=== PATIENT | male | born 1960 | race Caucasian/White ===

== ENCOUNTER → 2023-12-27 12:55 | Outpatient (CLI) | payer OTHER, SELFPAY ==
--- NOTE | 2023-12-27 12:58 | DI.CT.S_ITS ---
PROCEDURE: CT CHEST WO CON INDICATIONS: CHRONIC COUGH TECHNIQUE: Noncontrast 5 mm thick sections acquired from the pulmonary apices to the posterior costophrenic angles. 1 mm lung window, 5 mm thick coronal and sagittal and 7 mm axial MIP reformats were then acquired. For radiation dose reduction, the following was used: automated exposure control, adjustment of mA and/or kV according to patient size. COMPARISON: None. FINDINGS: Image quality: Diagnostic. Lower Neck: No enlarged lymph nodes. Thyroid: No thyroid nodules which require sonographic follow up, per consensus guidelines. Axillae: No enlarged lymph nodes. Chest Wall: Unremarkable. Bones: Unremarkable. Lungs and Pleura: Multiple lung nodules are present. Reference nodules: -1.2 x 1.7 cm; right upper lobe; series 3, image 81. -0.9 x 1.2 cm; right upper lobe; series 3, image 111. -1.1 x 1.3 cm; left upper lobe; series 3, image 111. -0.7 cm; right upper lobe; series 3 image 129. -0.7 cm; left upper lobe; series 3 image 138. There is moderate emphysema. No pneumothorax or pleural effusions. No consolidation. Heart: Heart size is normal. No pericardial effusion. Mild coronary artery calcification. Thoracic Vessels: The aorta and pulmonary arteries demonstrate normal size. Mediastinum and Marley: No enlarged lymph nodes. There is a 0.9 x 1.2 cm borderline sized precarinal lymph node, likely reactive. Esophagus: No wall thickening. Small hiatal hernia. Upper Abdomen: Visualized upper abdomen solid organs and bowel loops appear normal. IMPRESSION: 1. Multiple lung nodules bilaterally, predominantly involving upper lobes. Many nodules are partially calcified and probably related to remote granulomatous infections. Comparison to prior examinations, if available, would be helpful. If no prior examinations are available, recommend a short interval follow-up CT in 3 months. 2. Moderate emphysema. Dictated by: Caryn Felton M.D. on 12/27/2023 at 16:50 Approved by: Caryn Felton M.D. on 12/28/2023 at 9:05
== END ==
PROVIDERS: Referring Provider Family Medicine; Visit Provider Family Medicine
DX: J43.9 Emphysema, unspecified (principal); R05.3 Chronic cough; R91.8 Other nonspecific abnormal finding of lung field; I25.10 Atherosclerotic heart disease of native coronary artery without angina pectoris; K44.9 Diaphragmatic hernia without obstruction or gangrene
CPT/HCPCS: 71250

== ENCOUNTER → 2024-06-29 14:18 | Outpatient (CLI) | payer OTHER, SELFPAY ==
--- NOTE | 2024-06-29 14:19 | DI.CT.S_ITS ---
PROCEDURE: CT CHEST WO CON INDICATIONS: FOLLOW UP LUNG NODULES TECHNIQUE: Noncontrast 5 mm thick sections acquired from the pulmonary apices to the posterior costophrenic angles. 1 mm lung window, 5 mm thick coronal and sagittal and 7 mm axial MIP reformats were then acquired. For radiation dose reduction, the following was used: automated exposure control, adjustment of mA and/or kV according to patient size. COMPARISON: [facility], CT, CT CHEST WO CON, 12/27/2023, 13:09. FINDINGS: Image quality: Diagnostic Lungs and pleura: Numerous pulmonary nodules again seen. Background moderate emphysema. Most of the nodules are calcified, suggestive of granulomatous nodules. No dense airspace disease or pleural effusions. There is a cavitary nodule that is significantly increased from prior imaging in the left upper lung measuring 1.2 cm. There are spiculated margins. The other nodules are stable. Mediastinum, heart, and esophagus: Atherosclerotic and coronary calcifications. No pathologic lymph nodes by size criteria. Esophagus is unremarkable. Chest wall and thyroid: Unremarkable Upper abdomen: No gross abnormality on these noncontrast images. Subcentimeter right lobe liver lesions too small to characterize, usually a cyst Bones: There are degenerative changes. IMPRESSION: Significantly increased size of the spiculated cavitary nodule in the left upper lung measuring up to 1.2 cm (image 3/72). Consider PET-CT to assess metabolic activity, although possibly amenable to percutaneous sampling, background emphysema increases risk of procedural pneumothorax. Numerous other pulmonary nodules are stable, most of them are calcified suggestive of granulomas. Other findings above Dictated by: Henrique Goddard M.D. on 06/30/2024 at 7:32 Approved by: Henrique Goddard M.D. on 06/30/2024 at 7:39
== END ==
LOC: CT 14:18
PROVIDERS: PCP Registered Nurse; Referring Provider Registered Nurse; Visit Provider Registered Nurse
DX: Z12.2 Encounter for screening for malignant neoplasm of respiratory organs (principal); I25.10 Atherosclerotic heart disease of native coronary artery without angina pectoris; R91.8 Other nonspecific abnormal finding of lung field
CPT/HCPCS: 71250

== ENCOUNTER 2025-01-31 20:04 | Inpatient (IN) | payer OTHER, SELFPAY ==
[2025-01-31] VITALS (13 sets, daily range): BP systolic 105–125; BP diastolic 62–79; PULSE 94–121; TEMP 36.8; O2SAT 91–98; BMI 19.9
--- NOTE | 2025-01-31 20:12 | DI.RAD.S_ITS ---
PROCEDURE: XR CHEST 1V INDICATIONS: Shortness of breath TECHNIQUE: One view of the chest was acquired. COMPARISON: [facility], CT, CT CHEST WO CON, 06/29/2024, 14:32. FINDINGS: Surgical changes and devices: None. Lungs and pleura: Lungs are hyperexpanded. Diffuse appearance of interstitial opacities with areas of nodularity identified on prior CT. Bilateral minimal to mild effusions, left greater than right with increased pulmonary vascularity. Mediastinum: Mediastinal contours appear normal. Heart size is enlarged. Bones and chest wall: No suspicious bony lesions. Overlying soft tissues appear unremarkable. IMPRESSION: Minimal to mild bilateral effusions and increased vascularity suggestive of edema. Focal nodular opacities are again identified as on prior CT. Dictated by: Bette Fairchild M.D. on 01/31/2025 at 20:35 Approved by: Bette Fairchild M.D. on 01/31/2025 at 20:37
--- NOTE | 2025-01-31 20:14 | EKG_ITS ---
[address] [address] Test Date: 2025-01-31 Pat Name: Teodoro Horner Department: Room: Gender: Male Senior Oracle Dba: VIKTORIA : 1960 Requested By: Order Number: [id number] Reading MD: Kenton Fong Measurements Intervals [place] Rate: 102 P: 78 KS: 158 QRS: 20 QRSD: 160 T: 45 QT: 392 QTc: 510 Interpretive Statements Sinus tachycardia Possible Left atrial enlargement Left bundle branch block Electronically Signed On 02-15-2025 8:09:06 PDT by Kenton Fong
[2025-01-31] MEDS: ALBUTEROL/IPRATROPIUM 3 ML AMPUL INH (20:16)
--- NOTE | 2025-01-31 20:30 | ED_ITS ---
HPI - SOB/Dyspnea General Chief Complaint: Shortness of Breath/Dyspnea Stated Complaint: difficulty breathing hx copd Time Seen by Provider: 01/31/25 20:13 Source: patient Mode of arrival: EMS Limitations: no limitations History of Present Illness HPI Narrative: 64-year-old male with history of ongoing smoking since age 16, many pack years, no home oxygen use, history of COPD, [facility], denies history of known CAD, denies history of known CHF, has chronic lower extremity edema, increased cough and increasing shortness of breath over the last few days, worsened today. Arrived by EMS, given breathing treatment during transport. Little improvement symptoms on arrival. Related Data Home Medications ?Medication ?Instructions ?Recorded ?Confirmed albuterol 90 mcg/actuation aerosol mcg inhalation .Q4h rs PRN 02/01/25 inhaler shortness of breath amlodipine 10 mg tablet 10 mg PO DAILY 02/01/2501/09 fluticasone 250 mcg-salmeterol 50 1 inh inhalation BID Shortness 02/01/25 02/01/25 mcg/dose blistr powdr for inhalation (Advair Diskus) fluticasone propionate 50 1 spray intranasal DAILY PRN nasal 02/01/25 02/01/25 mcg/actuation nasal congestion spray,suspension (Flonase Allergy Relief) modafinal DAILY Narcolepsy 02/01/25 naproxen 500 mg tablet 250 mg PO BID PRN pain 02/0102/01/25 Allergies Allergy/AdvReac Type Severity Reaction Status Date / Time No Known Drug Allergies Allergy Verified 01/31/25 20:11 Patient History Social History household members: none Smoking Status: Current every day smoker Smoking Status: Current every day smoker Exam Narrative Exam Narrative: GENERAL: Well-developed patient, in mild distress. HEAD: Atraumatic. Normocephalic. EYES: Pupils equal round and reactive. Extraocular motions intact. No scleral icterus. No injection or drainage. ENT: Nose without bleeding, purulent drainage. Throat without erythema, tonsillar hypertrophy or exudate. Airway patent. NECK: Trachea midline. Non tender CARDIOVASCULAR: Regular rate and rhythm without murmurs, gallops, or rubs. RESPIRATORY: Slight wheeze and expiration, breathing treatment and progress during my initial exam, no obvious crackles. GASTROINTESTINAL: Abdomen soft, non-tender, nondistended. EXTREMITIES: Bilateral lower extremity edema 2+ ankles and distal forelegs symmetrical, without tenderness. BACK: Nontender without deformity or crepitance. No flank tenderness. NEURO: AOx3. Motor functions grossly nonfocal. SKIN: No rash or erythema of visible areas Initial Vital Signs Initial Vital Signs: Vital Signs Temperature 98.3 F 01/31/25 20:03 Pulse Rate 109 H 01/31/25 20:03 Blood Pressure 115/68 01/31/25 20:03 Pulse Oximetry 93 01/31/25 20:03 Oxygen Delivery Method Nasal Cannula 01/31/25 20:03 Oxygen Flow Rate 4 01/31/25 20:03 Course Orders Ordered: Acetaminophen (Acetaminophen 325 Mg Tablet) 650 mg PO Q6H PRN PRN Reason: Fever/Mild Pain (1-3) Albuterol/Ipratropium (Albuterol/Ipratropium 3 Ml Ampul) 3 ml INH [id number] [facility] Last Admin: 02/01/25 19:14 Dose: 3 ml Documented By: Admin: 02/01/25 15:03 Dose: 3 ml Documented By: Admin: 02/01/25 09:41 Dose: 3 ml Documented By: ED Albuterol/Ipratropium (Albuterol/Ipratropium 3 Ml Ampul) 3 ml INH RTQ6HR PRN PRN Reason: Shortness Of Breath Azithromycin (Azithromycin 250 Mg Tablet) 250 mg PO DAILY [facility] Last Admin: 02/01/25 08:41 Dose: 250 mg Documented By: JIMMY Budesonide (Budesonide 0.5 Mg/2 Ml Neb) 0.5 mg INH RTBID [facility] Last Admin: 02/01/25 19:14 Dose: 0.5 mg Documented By: Admin: 02/01/25 09:41 Dose: 0.5 mg Documented By: ED Enoxaparin Sodium (Enoxaparin 40 Mg/0.4 Ml Syringe) 40 mg SUBCUT DAILY [facility] Last Admin: 02/01/25 08:43 Dose: 40 mg Documented By: JIMMY Furosemide (Furosemide 40 Mg/4 Ml Vial) 40 mg IV Q8H [facility] Last Admin: 02/02/25 00:16 Dose: 40 mg Documented By: Admin: 02/01/25 15:12 Dose: Not Given Documented By: Admin: 02/01/25 06:02 Dose: Not Given Documented By: RUSTY Guaifenesin (Guaifenesin Solution 100 Mg/5 Ml Udc) 200 mg PO Q4HR PRN PRN Reason: Cough Last Admin: 02/01/25 22:17 Dose: 200 mg Documented By: CARINA Ceftriaxone Sodium 1,000 mg/ (Sodium Chloride) 100 mls @ 200 mls/hr IV Q24H [facility] Last Infusion: 02/01/25 09:37 Dose: Infused Documented By: Admin: 02/01/25 08:42 Dose: 200 mls/hr Documented By: JIMMY Methylprednisolone (Methylprednisolone 125 Mg/2 Ml Vial) 60 mg IV Q8H [facility] Last Admin: 02/02/25 00:29 Dose: 60 mg Documented By: Admin: 02/01/25 16:20 Dose: 60 mg Documented By: Admin: 02/01/25 08:42 Dose: 60 mg Documented By: JIMMY Morphine Sulfate (Morphine 2 Mg/Ml Inj) 1 mg IV Q2HR PRN PRN Reason: dyspnea Naloxone HCl (Naloxone 0.4 Mg/Ml Vial) 0.2 mg IV Q2MIN PRN PRN Reason: Opiate Reversal Ondansetron HCl (Ondansetron 4 Mg/2 Ml Inj) 4 mg IV Q8HR PRN PRN Reason: Nausea And Vomiting Discontinued Medications Albuterol (Albuterol 2.5 Mg/3 Ml Neb (Adult)) 7.5 mg INH NOW ONE Stop: 01/31/25 22:57 Last Admin: 01/31/25 23:00 Dose: 7.5 mg Documented By: MR Albuterol/Ipratropium (Albuterol/Ipratropium 3 Ml Ampul) 3 ml INH NOW ONE Stop: 01/31/25 20:14 Last Admin: 01/31/25 20:16 Dose: 3 ml Documented By: MR Aspirin (Aspirin 81 Mg Chew Tab) 324 mg PO NOW ONE Stop: 01/31/25 22:08 Last Admin: 01/31/25 22:19 Dose: 324 mg Documented By: ZAK Furosemide (Furosemide 40 Mg/4 Ml Vial) 40 mg IV NOW ONE Stop: 01/31/25 22:08 Last Admin: 01/31/25 22:18 Dose: 40 mg Documented By: ZAK Magnesium Sulfate (Magnesium Sulfate) 2 gm in 50 mls @ 150 mls/hr IV NOW ONE Stop: 01/31/25 20:32 Last Infusion: 01/31/25 20:58 Dose: Infused Documented By: ZAK Co-signed By: CHANDLER Admin: 01/31/25 20:31 Dose: 150 mls/hr Documented By: ZAK Co-signed By: ARIAN Lorazepam (Lorazepam 2 Mg/Ml Inj) 0.5 mg IV NOW ONE Stop: 02/02/25 00:43 Methylprednisolone (Methylprednisolone 125 Mg/2 Ml Vial) 125 mg IV NOW ONE Stop: 01/31/25 20:14 Last Admin: 01/31/25 20:31 Dose: 125 mg Documented By: ZAK Nitroglycerin (Nitroglycerin Oint 1 Inch/Gm Oint...G.) 1 inch TOP NOW ONE Stop: 01/31/25 22:08 Last Admin: 01/31/25 22:19 Dose: 1 inch Documented By: ZAK Non-Formulary Medication (Fluticasone Propion-Salmeterol [Advair Diskus]) 1 inhalation INHALATION BID RASHMI Vital Signs Vital signs: Vital Signs - 8 hr 01/31/25 23:00 01/31/25 23:00 01/31/25 23:29 Pulse Rate 107 H 115 H Blood Pressure 118/79 Pulse Oximetry 97 96 01/31/25 23:30 01/31/25 23:31 02/01/25 00:00 Pulse Rate 121 H Blood Pressure 125/70 93/52 L Pulse Oximetry 93 02/01/25 00:00 Pulse Rate 100 H Blood Pressure Pulse Oximetry 96 MDM - SOB/Dyspnea Lab Data Attestation: I reviewed the patient's lab results. Lab results narrative: White blood cell count 3800, hemoglobin 10.9, platelets adequate. Glucose 169. BUN 13 with creatinine 0.73 normal renal function. Serum CO2 26. Sodium 131 with potassium 4.0. Liver functions normal. Lipase normal. Troponin 0.01 initially low but measurable, troponin repeat 0.025 measurable slightly increased but still quite low. BNP 6370 elevated. 02/01/25 04:57 02/01/25 04:57 Labs: Lab Results 01/31/25 01/31/25 Range/Units 20:40 23:30 WBC 7.7 (4.5-11.0) X10^3/uL RBC 3.35 L (4.5-5.9) X10^6/uL Hgb 11.7 L (13.5-17.5) g/dL Hct 33.4 L (41-53) % MCV 99.7 (80-100) fL MCH 35.0 H (26-34) PG MCHC 35.1 (30-36) % RDW 14.3 (11.6-14.8) % Plt Count 215 (150-400) X10^3/uL Neut % (Auto) 67.1 (50-75) % Lymph % (Auto) 19.7 L (25-40) % [place] % (Auto) 7.5 (3-14) % Eos % (Auto) 4.2 H (2-4) % Baso % (Auto) 1.5 (0-2) % Neut # (Auto) 5200 (4033-7895) /uL Lymph # (Auto) 1500 (0829-6480) /uL [place] # (Auto) 600 (0-900) /uL Eos # (Auto) 300 (0-450) /uL Baso # (Auto) 100 (0-100) /uL PT 12.9 H (9.4-12.5) SECONDS INR 1.1 (0.9-1.3) Sodium 130 L (137-145) mmol/L Potassium 4.3 (3.4-5.1) mmol/L Chloride 98 (98-107) mmol/L Carbon Dioxide 25 (22-32) mmol/L BUN 11 (9-20) mg/dL Creatinine 0.65 L (0.66-1.25) mg/dL Estimated GFR > 60 (>60) mL/min BUN/Creatinine Ratio 16.9 (6-22) Glucose 107 H (70-99) mg/dL Lactate 1.0 (0.7-2.1) mmol/L Calcium 8.7 (8.4-10.2) mg/dL Total Bilirubin 0.6 (0.2-1.3) mg/dL AST 32 (17-59) IU/L ALT 22 (<50) IU/L Alkaline Phosphatase 80 (38-126) U/L Troponin I 0.014 0.025 (0.01-0.034) ng/mL NT-Pro-B Natriuret Pep 6370 H (<125) pg/mL Total Protein 7.2 (6.3-8.2) g/dL Albumin 3.9 (3.5-5.0) g/dL Globulin 3.3 (1.7-4.1) g/dL Albumin/Globulin Ratio 1.2 (1.0-2.8) Imaging Data Chest x-ray: Radiologist's Impression: [address] [address] XRay Report Signed Patient: Teodoro Horner MR#: [id number] : 1960 Acct:[id number] Age/Sex: 64 / M Date of Service: 02/02/25 Loc: 215-1 Accession Number: [id number] Procedure: XR chest 1V Ordering Provider: Pravin Huff MD PROCEDURE: XR CHEST 1V INDICATIONS: shortness of breath TECHNIQUE: One view of the chest was acquired. COMPARISON: [facility], CT, CT CHEST WO CON, 06/29/2024, 14:32. [facility], CR, XR CHEST 1V, 01/31/2025, 20:08. FINDINGS: Surgical changes and devices: None. Lungs and pleura: Multiple pulmonary nodules are again noted. Bronchial thickening, smooth interstitial thickening and small pleural effusions. Bibasilar atelectasis. Mediastinum: Mediastinal contours appear normal. Heart size is enlarged. Bones and chest wall: No suspicious bony lesions. Overlying soft tissues appear unremarkable. IMPRESSION: Moderate pulmonary edema and small pleural effusions. Scattered pulmonary nodules. Some of these require further workup as noted on CT dated 06/29/2024, if not already obtained. Dictated by: Milton Rhoades M.D. on 02/02/2025 at 0:17 Approved by: Milton Rhoades M.D. on 02/02/2025 at 0:19 ECG Data Attestation: I personally reviewed and interpreted this ECG as follows: Interpretation: 2013, sinus tachycardia with rate of 102, left bundle branch block pattern present. None for comparison identified. NE 158, QRS 160, QTC 510. MDM Narrative Medical decision making narrative: 64-year-old male with history of COPD, longstanding smoking, still a current smoker, chronic lower extremity edema, no recalled diagnosis of congestive heart failure, with shortness of breath, arrival by EMS, no response to initial breathing treatment. Slight wheeze end expiratory, IV Solu-Medrol, additional bronchodilators given. Hypoxia, new supplemental oxygen nasal cannula requirement for now. EKG left bundle, sinus tachycardia. Troponin negative. Chest x-ray scattered lung nodules, fluid overload changes, no mentioned infiltrates. See radiology report. Lab data: White blood cell count 3800, hemoglobin 10.9, platelets adequate. Glucose 169. BUN 13 with creatinine 0.73 normal renal function. Serum CO2 26. Sodium 131 with potassium 4.0. Liver functions normal. Lipase normal. Troponin 0.01 initially low but measurable, troponin repeat 0.025 measurable slightly increased but still quite low. BNP 6370 elevated. Hypoxia, likely CHF, history of COPD, consider admission. We will contact hospitalist. Case discussed with hospitalist Dr. Huff who accepts patient for admission. Critical Care Time Critical Care Time Critical Care Time: Yes Total Critical Care Time: 35 Attestation: The high probability of a clinically significant, sudden or life threatening deterioration of the [cardiopulmonary] system(s) required my full and direct attention, intervention and personal management. The aggregate critical care time was [35] minutes. This time is in addition to time spent performing reported procedures but includes the following: [x] Data Review and interpretation [x] Patient assessment and monitoring of vital signs [x] Documentation [x Medication orders and management Discharge Plan Departure Patient Disposition: Admitted As Inpatient Clinical Impression: Congestive heart failure, COPD exacerbation Admit Date/Time: 02/01/25 00:00 Admit Provider: Pravin Huff
[2025-01-31] MEDS: MAGNESIUM SULFATE 2 GM/50 ML PIGGYBACK IV (20:31)
[2025-01-31 20:48] LABS: Add Manual Diff / Slide Review NO; Hematocrit 33.4 % (41-53); Hemoglobin 11.7 g/dL (13.5-17.5); Lymphocytes Absolute Auto 1500 /uL (1100-4500); Mean Corpuscular HGB Conc 35.1 % (30-36); Mean Corpuscular Hemoglobin 35.0 PG (26-34); Mean Corpuscular Volume 99.7 fL (80-100); Platelet Count 215 X10^3/uL (150-400)
[2025-01-31 20:58] LABS: INR 1.1 (0.9-1.3); Prothrombin Time 12.9 SECONDS (9.4-12.5)
[2025-01-31 21:41] LABS: Lactate (Lactic Acid) 1.0 mmol/L (0.7-2.1)
[2025-01-31 21:42] LABS: Alanine Aminotransferase 22 IU/L (<50); Albumin 3.9 g/dL (3.5-5.0); Albumin Globulin Ratio 1.2 (1.0-2.8); Alkaline Phosphatase 80 U/L (38-126); Blood Urea Nitrogen 11 mg/dL (9-20); Calcium 8.7 mg/dL (8.4-10.2); Carbon Dioxide 25 mmol/L (22-32); Chloride 98 mmol/L (98-107); Estimated Glomerular Filt Rate > 60 mL/min (>60); Globulin 3.3 g/dL (1.7-4.1); Glucose 107 mg/dL (70-99); HEMOLYSIS 18 (0-50); Potassium 4.3 mmol/L (3.4-5.1); Sodium 130 mmol/L (137-145); Total Protein 7.2 g/dL (6.3-8.2)
[2025-01-31 21:52] LABS: NT-proBNP (BNP-Adult 18+) 6370 pg/mL (<125); Troponin I 0.014 ng/mL (0.01-0.034)
[2025-01-31] MEDS: FUROSEMIDE 40 MG/4 ML VIAL IV (22:18)
[2025-01-31] MEDS: NITROGLYCERIN OINT 1 INCH/GM OINT...G. TOP (22:19)
[2025-01-31] MEDS: ASPIRIN 81 MG CHEW TAB 324 MG PO (22:19)
--- NOTE | 2025-01-31 22:53 | PC.NURSE ---
BAIL ATTACHER note: pt. requested the restroom, advised pt. that urinal is available, would give pt. privacy stood outside door for one min. entered pt. room and pt. sat in tripod position with increased WOB, notified RN and RT was called to room. pt. 02 sat increased to 96% and pt. was [facility] call light is within reach of pt. and pt. notified to push call light for needs.
[2025-01-31] MEDS: ALBUTEROL 2.5 MG/3 ML NEB (ADULT) 7.5 MG INH (23:00)
[2025-02-01] VITALS (10 sets, daily range): BP systolic 90–119; BP diastolic 52–67; PULSE 90–120; RESP 15–30; TEMP 36.4–37.2; O2SAT 91–97; BMI 17.8
[2025-02-01 00:28] LABS: Troponin I 0.025 ng/mL (0.01-0.034)
--- NOTE | 2025-02-01 00:33 | DI.ECHO.S_ITS ---
[place] [facility] : : [address] : [place] [address] : : [id number] : : Phone: [phone] Echocardiogram Report + + :Name: CORDELIA GARNER Study Date: 02/01/2025 Height: 72 in : :[facility] ReadingLocation: Weight: 147 lb: : Gender: Male BSA: 1.9 m2 : :: 1960 Age: 64 yrs BP: 96/55 mmHg: :Reason For Study: HEART FAILURE : :Ordering Physician: ARIANNE, : :RODNEY Performed By: Carlos Pagan : :Referring: RODNEY ACUÑA : + + Interpretation Summary The left ventricle is moderate-severely dilated. The ejection fraction is estimated to be 15-20%. There is severe global hypokinesis of the left ventricle. Diastolic function is indeterminate. The left atrium is severely dilated. There is severe mitral regurgitation. Pulmonary artery pressures cannot be estimated because of the lack of a measurable TR jet velocity but the IVC suggests a CVP of around 3 mmHg. There is a trivial pericardial effusion noted. Left pleural effusion. Procedure: A two-dimensional transthoracic echocardiogram with color flow and Doppler was performed. The study quality was technically adequate. There is no prior echocardiogram noted for this patient. The patient was in normal sinus rhythm during the exam. Left Ventricle: There is normal left ventricular wall thickness. The left ventricle is moderate-severely dilated. There is no ventricular septal defect visualized. The ejection fraction is estimated to be 15-20%. There is severe global hypokinesis of the left ventricle. Diastolic function is indeterminate. Right Ventricle: The right ventricle is normal in size and function. Atria: The left atrium is severely dilated. Right atrial size is normal. There is no Doppler evidence for an interatrial shunt. Mitral Valve: The mitral valve leaflets appear mildly thickened. The mitral valve leaflets are mildly calcified. There is severe mitral regurgitation. Flow reversal noted in pulmonary veins consistent with significant mitral regurgitation. Aortic Valve: The aortic valve is trileaflet. The aortic valve is mildly calcified. The aortic valve opens well. There is no aortic valve stenosis. There is trace aortic regurgitation. Tricuspid Valve: The tricuspid valve is not well visualized. There is a trace or physiologic amount of tricuspid regurgitation. Pulmonary artery pressures cannot be estimated because of the lack of a measurable TR jet velocity but the IVC suggests a CVP of around 3 mmHg. Pulmonic Valve: The pulmonic valve leaflets are thin and pliable; valve motion is normal. There is no pulmonic valvular regurgitation. Great Vessels: The aortic root is normal size. The ascending aorta could not be visualized. The pulmonary artery is normal size. The IVC is of normal diameter and collapses greater than 50% with a sniff. This suggests a low right atrial pressure of 3 mm Hg. Pericardium/ Pleura There is a trivial pericardial effusion noted. Left pleural effusion. MMode/2D Measurements & Calculations LVIDd: 6.7 cm LVOT diam: 2.0 cm LVIDs: 6.1 cm Ao root diam: 3.2 cm FS: 8.9 % EPSS: 1.9 cm IVSd: 0.77 cm LVPWd: 0.96 cm LV chatman. diameter/BSA (cm/m^2): 3.6 LV sys. diameter/BSA (cm/m^2): 3.2 LA A2 area: 28.5 cm2 RA long axis: 4.8 cm LA A4 area: 23.2 cm2 RA area: 12.5 cm2 LA length (vol): 5.9 cm RA vol: 27.7 ml LA vol: 95.4 ml RA : 14.8 ml/m2 LA vol index: 51.0 ml/m2 IVC diam: 1.7 cm RVD1 (basal): 3.6 cm RVD2 (mid): 2.8 cm TAPSE: 2.6 cm Doppler Measurements & Calculations Ao V2 max: 153.2 cm/sec LVOT Max Sunil: 118.4 cm/sec Ao V2 mean: 105.0 cm/sec LV V1 max P.6 mmHg Ao max P.4 mmHg LV V1 VTI: 19.9 cm Ao mean P.1 mmHg FREDY(I,D): 2.5 cm2 Ao V2 VTI: 24.0 cm FREDY(V,D): 2.3 cm2 sev ratio: 0.83 FREDY indexed to BSA (cm^2/m^2): 1.3 MV E max sunil: 155.8 cm/sec PA V2 max: 93.2 cm/sec MV A max sunil: 0.75 cm/sec PA V2 mean: 63.1 cm/sec MV E/A: 209.1 PA mean P.8 mmHg Med Peak E' Sunil: 6.3 cm/sec PA pr(Accel): 41.3 mmHg E/E' med: 24.6 Lat Peak E' Sunil: 6.6 cm/sec E/E' lat: 23.6 E/e' average: 24.1 MV dec time: 0.16 sec MR ERO: 0.22 cm2 MR PISA: 3.1 cm2 SV(LVOT): 60.3 ml MR flow rate: 115.0 cm3/sec MR PISA radius: 0.70 cm Reading Physician:01:02 PM
--- NOTE | 2025-02-01 02:14 | PM.HP.1 ---
History of Present Illness History of Present Illness Date Patient Seen: 02/01/25 Time Patient Seen: 02:14 Chief complaint: difficulty breathing hx copd Narrative: 64-year-old male with past medical history of COPD not oxygen dependent, active tobacco smoking 1 pack/day and hypertension presents with complaint of shortness of breath. Per the patient's report, over the last few days, the patient noticed increased dry cough and shortness of breath. The patient admits she has some orthopnea. The patient states that he does have some chronic lower extreme edema but is unable to tell if it is worsening or not. The patient otherwise denies any chest pain, fever, chills, nausea, vomiting, diarrhea or syncope. Patient however admits to have some wheezing. In the emergency room, the patient was hemodynamically stable. However the patient did require 2 L of oxygen per nasal cannula. Patient labs shows sodium 130 BNP of 6370 and troponin negative x 2. EKG does not show any sign of acute ischemia. Chest x-ray shows mild bilateral effusion with increased vascularity suggesting edema. The patient was given IV Lasix 40 mg, Solu-Medrol was and DuoNebs. COUNT INCLUDES THE [facility] Social History household members: none Smoking Status: Current every day smoker Meds Home Medications and Allergies Home Medications ?Medication ?Instructions ?Recorded ?Confirmed ?Type albuterol 90 mcg/actuation aerosol mcg inhalation .Q4hrs PRN 02/01/25 History inhaler shortness of breath amlodipine 10 mg tablet 10 mg PO DAILY 02/01/25 02/01/25 History fluticasone 250 mcg-salmeterol 50 1 inh inhalation BID Shortness 02/01/25 02/01/25 History mcg/dose blistr powdr for inhalation (Advair Diskus) fluticasone propionate 50 1 spray intranasal DAILY PRN nasal 02/01/25 02/01/25 History mcg/actuation nasal congestion spray,suspension (Flonase Allergy Relief) modafinal DAILY Narcolepsy 02/01/25 History naproxen 500 mg tablet 250 mg PO BID PRN pain 02/01/25 02/01/25 History Allergies Allergy/AdvReac Type Severity Reaction Status Date / Time No Known Drug Allergies Allergy Verified 01/31/25 20:11 Review of Systems Review of Systems ROS: Yes All systems reviewed with the patient and are negative except as otherwise documented Exam Vital Signs (past 8 hours): - 01/31/25 20:03 01/31/25 20:09 01/31/25 20:10 Temperature 98.3 F Pulse Rate 109 H 106 H 105 H Blood Pressure 115/68 Pulse Oximetry 93 93 94 Oxygen Delivery Method Nasal Cannula Oxygen Flow Rate 4 01/31/25 20:10 01/31/25 20:30 01/31/25 20:30 Temperature Pulse Rate 98 H Blood Pressure 115/68 114/68 Pulse Oximetry 98 Oxygen Delivery Method Oxygen Flow Rate 01/31/25 21:00 01/31/25 21:00 01/31/25 21:30 Temperature Pulse Rate 97 H Blood Pressure 109/65 105/63 Pulse Oximetry 91 Oxygen Delivery Method Oxygen Flow Rate 01/31/25 21:30 01/31/25 22:00 01/31/25 22:00 Temperature Pulse Rate 94 H 95 H Blood Pressure 107/62 Pulse Oximetry 96 95 Oxygen Delivery Method Oxygen Flow Rate 01/31/25 22:19 01/31/25 22:30 01/31/25 22:30 Temperature Pulse Rate 100 H 97 H Blood Pressure 107/62 113/71 Pulse Oximetry 95 Oxygen Delivery Method Oxygen Flow Rate 01/31/25 23:00 01/31/25 23:00 01/31/25 23:29 Temperature Pulse Rate 107 H 115 H Blood Pressure 118/79 Pulse Oximetry 97 96 Oxygen Delivery Method Oxygen Flow Rate 01/31/25 23:30 01/31/25 23:31 02/01/25 00:00 Temperature Pulse Rate 121 H Blood Pressure 125/70 93/52 L Pulse Oximetry 93 Oxygen Delivery Method Oxygen Flow Rate 02/01/25 00:00 02/01/25 00:05 02/01/25 00:30 Temperature Pulse Rate 100 H Blood Pressure Pulse Oximetry 96 91 Oxygen Delivery Method Nasal Cannula Oxygen Flow Rate 2 Oxygen Delivery Method Nasal Cannula Oxygen Flow Rate 2 Narrative Exam Narrative: Physical Exam: GENERAL: The patient is not in any acute distressed. Awake and alert. HEENT: Nonicteric sclerae, PERRLA, EOMI. Oropharynx clear. Moist mucous membranes. Conjunctivae appear well perfused. HEART: Regular rate and rhythm without murmurs. 1+ lower extremities edema. LUNGS: basilar carackles with some mild wheezing otherwise Clear to auscultation bilaterally. No rhonchi ABDOMEN: Soft, positive bowel sounds, nontender. SKIN: No rash, no excessive bruising, petechiae, or purpura. NEUROLOGIC: AxO x 3. Cranial nerves II-XII intact without motor/sensory deficit. Objective Labs 01/31/25 20:40 01/31/25 20:40 Labs: Laboratory Results - last 24 hr 01/31/25 01/31/25 20:40 23:30 WBC 7.7 RBC 3.35 L Hgb 11.7 L Hct 33.4 L MCV 99.7 MCH 35.0 H MCHC 35.1 RDW 14.3 Plt Count 215 Neut % (Auto) 67.1 Lymph % (Auto) 19.7 L Morrison % (Auto) 7.5 Eos % (Auto) 4.2 H Baso % (Auto) 1.5 Neut # (Auto) 5200 Lymph # (Auto) 1500 [place] # (Auto) 600 Eos # (Auto) 300 Baso # (Auto) 100 PT 12.9 H INR 1.1 Sodium 130 L Potassium 4.3 Chloride 98 Carbon Dioxide 25 BUN 11 Creatinine 0.65 L Estimated GFR > 60 BUN/Creatinine Ratio 16.9 Glucose 107 H Lactate 1.0 Calcium 8.7 Total Bilirubin 0.6 AST 32 ALT 22 Alkaline Phosphatase 80 Troponin I 0.014 0.025 NT-Pro-B Natriuret Pep 6370 H Total Protein 7.2 Albumin 3.9 Globulin 3.3 Albumin/Globulin Ratio 1.2 Assessment & Plan Assessment & Plan narrative: COPD exacerbation. Admit the patient to medical telemetry as inpatient. Continue Solu-Medrol DuoNebs and oxygen. Of note no clear sign of pneumonia. Possible new onset of heart failure. BNP elevated in the 6000's with lower extreme edema and sign of pulmonary edema on chest x-ray. Continue IV Lasix with strict I's and O and daily weight. Echocardiogram pending. Note tropes were negative x 2 with EKG that shows no signs of acute ischemia. Acute respiratory failure with hypoxemia. Patient currently on 2 L of oxygen. Likely due to above. Treat as above and wean down oxygen as able. Active tobacco smoking. Patient feels admits to smoke 1 pack/day. Patient has been counseled. Patient refused nicotine patch which was offered. Hypertension. Monitor blood pressure and resume home antihypertensive medication accordingly. DVT prophylaxis Lovenox. CODE STATUS full code. Disposition likely home in 2 days. - As the provider of this telehealth evaluation, requested by the patient's evaluating physician, I attest that I introduced myself to the patient, provided my credentials and determined that telemedicine via a real-time, 2 way interactive audio and video platform is an appropriate and effective means of providing this service. - I reviewed the patient's chart and had a discussion with the member of the patient's treatment team. - The patient and I mutually agreed with continuation of this evaluation via telemedicine. The patient consented for the telemedicine evaluation. - This virtual encounter was taken place from [place] by Dr. Pravin Huff. The patient was evaluated at [facility]. The encounter was approximately 35 minutes. The nurse was present during the entire time of the encounter and was able to move the stethoscope in appropriate directions. Time-Based Coding :: [TOTAL MINUTES] spent with patient and on the chart (including review of chart, obtaining history, exam, reviewing outside data, placing orders, documenting exam and treatment plan, and counseling patient) on [DATE].
--- NOTE | 2025-02-01 02:21 | PC.NURSE ---
manager shift: Patient arrived from ED approximately 0100, stand-pivoted to bed w/ 1 PA FWW. Patient is very SOB with minimal exertion. SpO2 91% on 2LNC. Denies pain, reports generalized weakness. Condom catheter placed, voiding clear/yellow urine. Cont tele in place, cont p/ox in place. MD spoke with patient via [employer], patient verbalized understanding of plan of care. Oriented to call-light, snack provided before bed. Plan of care ongoing.
[2025-02-01 05:56] LABS: Add Manual Diff / Slide Review NO; Hematocrit 31.1 % (41-53); Hemoglobin 10.9 g/dL (13.5-17.5); Lymphocytes Absolute Auto 400 /uL (1100-4500); Mean Corpuscular HGB Conc 35.1 % (30-36); Mean Corpuscular Hemoglobin 34.9 PG (26-34); Mean Corpuscular Volume 99.5 fL (80-100); Platelet Count 204 X10^3/uL (150-400)
[2025-02-01 06:15] LABS: Troponin I 0.030 ng/mL (0.01-0.034)
[2025-02-01 06:17] LABS: Blood Urea Nitrogen 13 mg/dL (9-20); Calcium 8.6 mg/dL (8.4-10.2); Carbon Dioxide 26 mmol/L (22-32); Chloride 98 mmol/L (98-107); Estimated Glomerular Filt Rate > 60 mL/min (>60); Glucose 169 mg/dL (70-99); HEMOLYSIS < 15 (0-50); Potassium 4.0 mmol/L (3.4-5.1); Sodium 131 mmol/L (137-145)
[2025-02-01] MEDS: AZITHROMYCIN 250 MG TABLET PO (08:41)
[2025-02-01] MEDS: ENOXAPARIN 40 MG/0.4 ML SYRINGE SUBCUT (08:43)
[2025-02-01] MEDS: BUDESONIDE 0.5 MG/2 ML NEB INH ×2 (09:41→19:14)
[2025-02-01] MEDS: ALBUTEROL/IPRATROPIUM 3 ML AMPUL INH ×3 (09:41→19:14)
--- NOTE | 2025-02-01 12:01 | CM.DANOTE ---
Brief DCP Assessment Note: Pt is a 64yo male, resident of [place], is admitted for COPD exacerbation/ new Heart Failure. Pt lives in a mobile home alone. Pt's Primary Care Provider is ANNABELLE Marinelli and insurance is Medicare and [facility]. Reviewed chart and discussed with multidisciplinary team pt's medical status and initial discharge needs. Per hospitalist, respiratory treatments to continue and anticipating 2 days inpatient. PT/OT evaluations ordered on 02/01, monitoring for possible referrals needed. Identified that pt does not have home O2 but is requiring continuous supplementary oxygen in the hospital. Plan: Awaiting PT/OT evaluations and recommendation for evolving discharge plans, anticipating dc home 02/03. CM team will follow closely for coordination of discharge plans. JONY Lopez Discharge Planning/Care Management CM Discharge Assessment Start: 02/01/25 00:05 Freq: Status: Active Protocol: Document 02/01/25 11:59 MW (Rec: 02/01/25 12:01 MW [id number]) Discharge Planning Assessment Assigned Discharge JAMEL Ahmadi Senior Instructor Advance Directives? No History Provided By Patient Prior Living Mobile home Arrangements Comment [place] Household Members none Independent with ADL Yes 's Is patient alert and Yes oriented? Review Status In Process Please Provide Date 02/01/25 Initial DC Assessment Was Performed Next Review Type Continued Stay Review
--- NOTE | 2025-02-01 12:19 | DIET.CONS ---
Dietary Consultation Note Admission Date: 02/01/2025 00:00 Assessment: 64 y M admitted for COPD exacerbation. Dietitian screened for low MNA score Met with pt at bedside. Reports not eating for 2-3 days before admission d/t not feeling well/SOB. Reports generally low appetite recently, difficulty determining how much PO intakes have decreased, but sometimes skipping meals. Nutrition focused physical exam revealing: severe muscle mass wasting in temples, deltoids, trapezius and moderate to severe subcutaneous fat loss in buccal and orbital fat pads Diet recall: some snacks like cheetos or ariel chips Dinner- chicken, lasagna, hot dogs, pizza, etc Ht: 182.88 cm Wt: 59.5 kg BMI: 17.8 UBW: 147 lb (66.8 kg) per pt 2-3 months ago (-10% weight loss in 3 month), unsure of UBW Last BM: 01/29/25 (02/01/25 00:57) MNA: 5 Ashwin Score: 17 Diet: 02/01/25 Breakfast Heart Healthy Diet Diet Modifications: Nutrition Percent Meal Consumed 85 02/01/25 08:59 Labs: RBC 3.12 X10^6/uL (4.5-5.9) L 02/01/25 04:57 Hgb 10.9 g/dL (13.5-17.5) L 02/01/25 04:57 Hct 31.1 % (41-53) L 02/01/25 04:57 Creatinine 0.73 mg/dL (0.66-1.25) 02/01/25 04:57 Lactate 1.0 mmol/L (0.7-2.1) 01/31/25 20:40 NT-Pro-B Natriuret Pep 6370 pg/mL (<125) H 01/31/25 20:40 Nutrition Diagnosis: Severe acute Protein Calorie Malnutrition r/t reduced appetite and difficulty eating with SOB as evidenced by 10% weight loss in 3 months (severe), BMI severely underweight for age (17.8), and severe muscle mass wasting (temporalis, deltoids, trapezius) Interventions: Ensure plus/Enlive chocolate BID-TID, discussed having this between meals if affecting meal time appetite EER: 2100 kcals (35 kcals/kg per BMI) 75-90 g protein (1.25-1.5 g/kg per severe PCM) Monitoring/Evaluations: ONS tolerance Electronically Signed by: Korina Bee 02/01/25 12:19 Clinical Dietitian [address] [id number]
--- NOTE | 2025-02-01 13:50 | P.HP_ITS ---
History of Present Illness History of Present Illness Date Patient Seen: 02/01/25 Chief complaint: difficulty breathing hx copd Narrative: Chief complaint: Severe dyspnea hypoxic respiratory failure secondary to COPD and acute on chronic congestive heart failure History of present illness: 02/01: 64-year-old male with past medical history of COPD not oxygen dependent, active tobacco smoking 1 pack/day and hypertension presents with complaint of shortness of breath. Per the patient's report, over the last few days, the patient noticed increased dry cough and shortness of breath. The patient admits she has some orthopnea. The patient states that he does have some chronic lower extreme edema but is unable to tell if it is worsening or not. The patient otherwise denies any chest pain, fever, chills, nausea, vomiting, diarrhea or syncope. Patient however admits to have some wheezing. In the emergency room, the patient was hemodynamically stable. However the patient did require 2 L of oxygen per nasal cannula. Patient labs shows sodium 130 BNP of 6370 and troponin negative x 2. EKG does not show any sign of acute ischemia. Chest x-ray shows mild bilateral effusion with increased vascularity suggesting edema. The patient was given IV Lasix 40 mg, Solu-Medrol was and DuoNebs. Findings in the emergency department significant for echocardiogram: The left ventricle is moderate-severely dilated. The ejection fraction is estimated to be 15-20%. There is severe global hypokinesis of the left ventricle. Diastolic function is indeterminate. The left atrium is severely dilated. There is severe mitral regurgitation. Pulmonary artery pressures cannot be estimated because of the lack of a measurable TR jet velocity but the IVC suggests a CVP of around 3 mmHg. There is a trivial pericardial effusion noted. Left pleural effusion. Hospital course: 02/01: Review of systems: No fevers or chills No chest pains or palpitations No nausea vomiting diarrhea No paresthesia paresis No muscle weakness Physical exam: Very pleasant elderly gentleman HEENT unremarkable Heart sounds distant Lungs are diminished breath sounds at bases Extremities no edema Alert and oriented Neuro nonfocal Objective laboratory and imaging please see the bottom of the note: Assessment and plan: Acute respiratory failure with hypoxia secondary to acute on chronic systolic congestive heart failure EF 15-20% and acute exacerbation of COPD * Brisk diuresis monitoring BUN creatinine intake and output 1800 cc fluid restriction * Supplemental oxygen DVT prophylaxis * Lovenox Code status * Full code blue 55 minutes were involved in managing patient's admission including [id number] patient evaluation review of laboratory and imaging findings. [facility] Social History household members: none Smoking Status: Current every day smoker Meds Home Medications and Allergies Home Medications ?Medication ?Instructions ?Recorded ?Confirmed ?Type albuterol 90 mcg/actuation aerosol mcg inhalation .Q4h rs PRN 02/01/25 History inhaler shortness of breath amlodipine 10 mg tablet 10 mg PO DAILY 02/01/25 07/2 12/02 History fluticasone 250 mcg-salmeterol 50 1 inh inhalation BID Shortness 02/01/25 02/01/25 History mcg/dose blistr powdr for inhalation (Advair Diskus) fluticasone propionate 50 1 spray intranasal DAILY PRN nasal 02/01/25 02/01/25 History mcg/actuation nasal congestion spray,suspension (Flonase Allergy Relief) modafinal DAILY Narcolepsy 02/01/25 H istory naproxen 500 mg tablet 250 mg PO BID PRN pain 02/0102/01/25 History Allergies Allergy/AdvReac Type Severity Reaction Status Date / Time No Known Drug Allergies Allergy Verified 01/31/25 20:11 Exam Vital Signs (past 8 hours): - 02/01/25 07:58 02/01/25 09:42 Temperature 97.6 F Pulse Rate 92 H 97 H Respiratory Rate 17 16 Blood Pressure 102/65 Pulse Oximetry 94 96 Oxygen Delivery Method Room Air Oxygen Flow Rate 0 Oxygen Delivery Method Room Air Oxygen Flow Rate 0 Objective Labs 02/01/25 04:57 02/01/25 04:57 Labs: Laboratory Results - last 24 hr 01/31/25 01/31/25 02/01/25 20:40 23:30 04:57 WBC 7.7 3.8 L D RBC 3.35 L 3.12 L Hgb 11.7 L 10.9 L Hct 33.4 L 31.1 L MCV 99.7 99.5 MCH 35.0 H 34.9 H MCHC 35.1 35.1 RDW 14.3 14.2 Plt Count 215 204 Neut % (Auto) 67.1 86.6 H Lymph % (Auto) 19.7 L 11.7 L [place] % (Auto) 7.5 1.1 L Eos % (Auto) 4.2 H 0.0 L Baso % (Auto) 1.5 0.6 Neut # (Auto) 5200 3300 Lymph # (Auto) 1500 400 L [place] # (Auto) 600 0 Eos # (Auto) 300 0 Baso # (Auto) 100 0 PT 12.9 H INR 1.1 Sodium 130 L 131 L Potassium 4.3 4.0 Chloride 98 98 Carbon Dioxide 25 26 BUN 11 13 Creatinine 0.65 L 0.73 Estimated GFR > 60 > 60 BUN/Creatinine Ratio 16.9 17.8 Glucose 107 H 169 H Lactate 1.0 Calcium 8.7 8.6 Total Bilirubin 0.6 AST 32 ALT 22 Alkaline Phosphatase 80 Troponin I 0.014 0.025 0.030 NT-Pro-B Natriuret Pep 6370 H Total Protein 7.2 Albumin 3.9 Globulin 3.3 Albumin/Globulin Ratio 1.2 Assessment & Plan Time-Based Coding :: [TOTAL MINUTES] spent with patient and on the chart (including review of chart, obtaining history, exam, reviewing outside data, placing orders, documenting exam and treatment plan, and counseling patient) on [DATE].
--- NOTE | 2025-02-01 15:07 | OT.IP.EVAL ---
Current Diagnoses Chronic obstructive pulmonary disease with (acute) exacerbation (02/01/25) Occupational Therapy Inpatient Evaluation/Re-Eval M1 PT/OT-IP Prior Functional Status Start: 02/01/25 15:08 Freq: NEEDED Status: Active Protocol: Document 02/01/25 15:09 [facility] (Rec: 02/01/25 15:26 [facility] Desktop) Medical Review Prior Functional Status Communication I Mobility and Gait Per pt in the past two week progressively got more SOB and not around as well. 2 weeks ago able to get to his mailbox which is 100ft. Pt states uses a banister railing as a walking stick at times when his back acts up. Activities of Daily Pt able to do all ADL and IADL needs prior to his Living and IADL's progressive decline in the past two weeks per pt. Social History Household Members none Living Arrangements Mobile home Number of Stairs To 3 steps with left rail. Enter/Railing? Home Environment Standard Height Toilet,Tub/Shower Home Equipment Hand Held Shower Additional Social Pt's tub/shower being renovated and therefore just History Comment sponges for showering needs. M2 OT-IP Current Condition Start: 02/01/25 15:08 Freq: Status: Active Protocol: Document 02/01/25 15:09 [facility] (Rec: 02/01/25 15:26 [facility] Desktop) Occupational Therapy Current Condition Current Condition Evaluation Date 02/01/25 Treatment Diagnosis COPD exacerbation Diagnosis Onset Date 02/01/25 M3 OT- IP Subjective and Pain Start: 02/01/25 15:08 Freq: Status: Active Protocol: Document 02/01/25 15:09 [facility] (Rec: 02/01/25 15:26 [facility] Desktop) OT- Subjective Occupational Therapy Visit Type Type Initial Evaluation Visit Start Time 14:35 Visit Stop Time 15:07 Occupational Therapy Visit Comments Patient Comments Pt agreed to get up to do grooming/oral care needs. Patient/Caregiver TO get better Goals OT Pain Assessment Pain When Pain Assessed At Rest Pain Present Pain Present Pain Reported Location Chest Intensity 3 Scale Used Numeric (0 - 10) Description Sharp M4 OT- IP ADL's Start: 02/01/25 15:08 Freq: Status: Active Protocol: Document 02/01/25 15:09 [facility] (Rec: 02/01/25 15:26 [facility] Desktop) OT [id number] Comments OT Self-Feeding Not at meal time. Comments OT ADL-Grooming Comments OT Grooming Comments Attempted to get to the sink, but only able to stand as getting very SOB. OT ADL-Oral Care Comments Oral Care Comments Not able to attempt. OT ADL-Dressing Comments OT Dressing Comments Pt states not able to try as too SOB. Pt states has difficulty with LB dressing needs. OT ADL-Toileting General Evaluation Toileting Ability Total Assistance Areas Needing Empty Catheter or Colostomy Assistance Comments OT Toileting Pt has external cath. Comments OT ADL-Bathing Comments OT Bathing Comments Not performed. M5 OT- IP IADL's Start: 02/01/25 15:08 Freq: Status: Active Protocol: Document 02/01/25 15:09 [facility] (Rec: 02/01/25 15:26 [facility] Desktop) OT-Instrumental Activities of Daily Living Deficits IADL Deficits Deficits Identified Home Safety Awareness Awareness of Need Good Awareness for Assistance at Home Home Safety Comments Pt aware not able to take care of himself as very SOB and decreased activity tolerance. Meal Preparation Meal Preparation At this time pt would need assist. Comments Color Maker Dyer Color Maker Dyer Pt would benefit from assist. Comments M6 OT- IP Functional Cognition Start: 02/01/25 15:08 Freq: Status: Active Protocol: Document 02/01/25 15:09 [facility] (Rec: 02/01/25 15:26 [facility] Desktop) Cognitive Factors Limiting Selfcare Function Cognitive Ability Level of Alertness Alert Patient Orientation Name,Age,Birthday,Month,Date,Year,Day of Week,Place, Situation Attention Span Capable of Focused Attention,Capable of Sustained Ability Attention Ability to Follow Able to Follow One Step Commands Commands Cognitive Comments Cognitive Assessment Pt able to follow commands for mobility needs. Comments OT- Vision and Hearing OT- Hearing Assessment OT- Hearing WFL Assessment OT- Vision Assessment Visual Acuity Glasses All The Time Visual Attentiveness WFL Occular Pursuits WFL Visual Convergence WFL Visual Scott WFL Diplopia Absent M7 OT- IP Mobility and Balance Start: 02/01/25 15:08 Freq: Status: Active Protocol: Document 02/01/25 15:09 [facility] (Rec: 02/01/25 15:26 [facility] Desktop) OT- Bed Mobility Assessment Supine to Sit Supine to Sit Assist Standby Assistance Sit to Supine Sit to Supine Assist MERARI OT-Transfer Assessment Sit to and From Stand Sit to and from Contact Guard Assistance Stand Comments Mobility Comments BP supine 111/93, 97/69, sitting 105/61, and standing 96/69. CGA to stand and pt using the back of his legs to stand from the bed with CGA. Pt immediately having to sit down due to SOB. Able to go over log rolling with pt due to history of back pain. OT- Balance Assessment Sitting Balance and Reactions Static Sitting Good Balance Ability Dynamic Sitting Fair Balance Ability Standing Balance and Reactions Static Standing Poor Balance Ability M8 OT- IP Objective Assessments Start: 02/01/25 15:08 Freq: Status: Active Protocol: Document 02/01/25 15:09 [facility] (Rec: 02/01/25 15:26 [facility] Desktop) OT Gross Range of Motion Upper Extremity Range of Motion Assessment Within Functional Limits OT Strength Upper Extremity Strength Assessment Within Functional Limits Comments Strength Comments BUE 4/5 to 5/5 OT- Coordination Assessment Upper Extremity Finger to Nose Test Within Functional Limits M9 OT- IP Assessment and Plan Start: 02/01/25 15:08 Freq: Status: Active Protocol: Document 02/01/25 15:09 [facility] (Rec: 02/01/25 15:26 [facility] Desktop) OT Summary Assessment and Plan Potential Rehabilitation Good Potential Analytic Complexity Moderate at Evaluation Summary OT Impairments Pain,Balance,Functional Mobility,Grooming,Dressing, Toileting,Bathing,Toilet Transfers,Shower Transfers, Activity Tolerance Progress Towards Slow Progress due to Pain,Slow Progress due to Medical Goals Issues,Slow Progress due to Activity Tolerance Assessment Summary Pt MOD complexity and main barriers are decreased activity tolerance and balance resulting in decreased independence for ADL and mobility needs. Pt will benefit from SNF as pt is far from his baseline of independence prior. Pt was very SOB on OT eval and just only able to come to stand at this time. Goals Self-Feeding Goal Independent Grooming Goal Independent Dressing Goal Independent Toileting Goal Independent Bathing Goal Independent Toilet Transfer Goal Independent Shower Transfer Goal Independent Patient/Caregiver Demonstrate Energy Conservation and Pacing Education Goal Days to Meet Goals 15 Frequency of Treatment Other frequency 5x/week Treatment Plan OT Treatment Plan ADL Training,Functional Mobility,Patient/Family Education,Discharge Planning Discharge Recommendations OT Discharge SNF Rehab Recommendations Transportation Needs Wheelchair/Cabulance at Discharge
--- NOTE | 2025-02-01 15:25 | PC.NURSE ---
Pt having relatively uneventful day. Taking RT Tx as needed. SL intact/patent. Tele showing ST/BBB per ICU staff. Lasix held due to low B/P Call light w/in reach, pt calls appropriately for needs. Continue w/plan of care.
--- NOTE | 2025-02-01 16:35 | PT.IIE ---
Current Diagnoses Chronic obstructive pulmonary disease with (acute) exacerbation (02/01/25) Physical Therapy Inpatient Evaluation/Re-Eval M1 PT/OT-IP Prior Functional Status Start: 02/01/25 17:24 Freq: NEEDED Status: Active Protocol: Document 02/01/25 16:35 AB (Rec: 02/01/25 17:44 AB [id number]) Medical Review Prior Functional Status Medical History Yes Reviewed Communication able to make needs known Mobility and Gait pt stated that he was modified independent with all mobilities and ambulation without AD but occasionally uses a walking stick for walking depending on how stable he feels; pt stated that he was still driving prior to admission Activities of Daily Pt able to do all ADL and IADL needs prior to his Living and IADL's progressive decline in the past two weeks per pt. Social History Household Members none Living Arrangements Mobile home Number of Stairs To 3 steps with left rail to enter Enter/Railing? Home Environment Standard Height Toilet,Tub/Shower Home Equipment Shower Seat with Backrest,Hand Held Shower Additional Social Pt's tub/shower being renovated and therefore just History Comment sponges for showering needs. M2 PT-IP Current Condition Start: 02/01/25 17:24 Freq: NEEDED Status: Active Protocol: Document 02/01/25 16:35 AB (Rec: 02/01/25 17:44 AB [id number]) Physical Therapy Current Condition Current Condition Evaluation Date 02/01/25 Treatment Diagnosis COPD exacerbation; CHF; difficulty in walking Onset Date 02/01/25 M3 PT-IP Subjective Start: 02/01/25 17:24 Freq: NEEDED Status: Active Protocol: Document 02/01/25 16:35 AB (Rec: 02/01/25 17:44 AB [id number]) Therapy Pain Assessment Pain When Pain Assessed During Mobility Pain Present Pain Present Pain Reported Location Bilateral Calf Intensity 2 Description Tightness Pain Management Distraction,Modification of Treatment Techniques Chest Intensity 2 Pain Behaviors Holding Area Pain Management Modification of Treatment Techniques M4 PT-IP Mobility and Gait Start: 02/01/25 17:24 Freq: NEEDED Status: Active Protocol: Document 02/01/25 16:35 AB (Rec: 02/01/25 17:44 AB [id number]) PT-Bed Mobility Assessment Supine to Sit Supine to Sit Standby Assistance Sit to Supine Sit to Supine Standby Assistance PT-Transfer Assessment Sit to and From Stand Sit to and from Moderate Assistance,Maximum Assistance,1 Person Stand Assistance,Use of Upper Extremities Equipment Transfer Assistive Gait Belt,Front Wheeled Walker Device Orthotic/Prosthetic No Devices or Brace: Comments Mobility Comments pt in bed and agreeable to do PT. obtained PLOF and home setup. per nurse, pt was only on 1/2LO2 and can be taken off for now to wean off. O2 sat at RA: 94% BP : 94/69. PA: 108. pt completed supine to sit SBA. (+) SOB. O2 sat: 90% PA: 111 sit to stand mod to max A and requiring 2 attempts to stand. able to take 1-2 steps using FWW mod to max A but c/o B calves pain and chest pain needing pt to step backwards back to EOB to sit. O2 sat: 88% and PA: 119 . pt requested to go back to bed. sit to supine SBA. positioned pt in bed. call light and table placed within reach. nurse aware of O2 sat and c/o pain Gait Assessment Gait Gait Assistance Moderate Assistance,Maximum Assistance,1 Person Assist Required: Distance (Feet) 2 Able to Maintain Yes Weight Bearing Status During Gait Assistive Devices Assistive Device Gait Belt,Front Wheeled Walker Orthotic/Prosthetic No Devices or Brace: Gait Deviations General Gait Pattern Ataxic,Decreased Feet Clearance,Step-to Gait Factors Limiting Gait Function Factors Limiting Decreased Activity Tolerance,Decreased Sensation, Gait Function Decreased Strength,Difficulty Following Directions,Pain ,Poor Balance,Poor Safety Awareness,Respiratory Distress Comments Gait Comments pls refer to mobility section for details PT-Balance Assessment Sitting Balance and Reactions Static Sitting Normal Balance Ability Dynamic Sitting Good Balance Ability Standing Balance and Reactions Static Standing Fair Balance Ability Dynamic Standing Poor Balance Ability Device Used FWW M5 PT-IP Objective Assessments Start: 02/01/25 17:24 Freq: NEEDED Status: Active Protocol: Document 02/01/25 16:35 AB (Rec: 02/01/25 17:44 AB [id number]) Orientation Orientation/Cognition Level of Alertness Alert Orientation Name,Place,Situation Language Function No Deficits Noted Ability Safety Awareness Decreased Safety Awareness Gross Range of Motion Lower Extremity ROM Assessment Within Functional Limits Strength Lower Extremity Strength Hip 4-/5 Knee 4-/5 Sensation Assessment Sensation Gross Sensation Right UE Impaired,Left UE Impaired,Right LE Impaired, Left LE Impaired Sensation Numbness Description Comments Sensation Comments stated chronic numbness on B feet and B hands Muscle Tone Muscle Tone WNL Yes M6 PT-IP Treatment Start: 02/01/25 17:24 Freq: NEEDED Status: Active Protocol: Document 02/01/25 16:35 AB (Rec: 02/01/25 17:44 AB [id number]) Physical Therapy Treatment Education Education Provided Safety M7 PT-IP Assessment and Plan Start: 02/01/25 17:24 Freq: NEEDED Status: Active Protocol: Document 02/01/25 16:35 AB (Rec: 02/01/25 17:44 AB [id number]) PT Summary Assessment and Plan Potential Rehabilitation Fair Potential Status of Condition Evolving at Evaluation Summary Impairments Pain,ROM,Strength,Balance,Coordination,Sensation,Tone, Cognition,Bed Mobility,Transfers,Gait,Activity Tolerance Assessment Summary pt is a 64 y/o M who is admitted for CHF and COPD exacerbation. pt requiring SBA for bed mobility but requires mod to max A for sit to stand and only able to take 1-2 steps using FWW mod to max A and max cues. pt unable to tolerate much activity with c/o B calf pain and chest pain with exertion. pt will benefit from SNF rehab to improve overall strength and mobility independence. will continue to assess. Goals Bed Mobility Goal Independent Transfer Goal Standby Assistance,Front Wheeled Walker Gait Goal Standby Assistance,Front Wheel Walker Gait Distance 50 Other Goals improve transfers, ambulation using LRAD 150 ft mod I up/down 3 steps L rail ascending SBA Days to Meet Goals 10 Frequency of Treatment Frequency Of Once a Day Treatment Treatment Plan Physical Therapy Bed Mobility Training,Transfer Training,Gait Training, Treatment Plan Therapeutic Exercise,Balance Retraining,Discharge Planning,Hot or Cold Pack,Neuromuscular Re-ed, Coordination Retraining Precautions Other Precautions falls, o2 sat, PA Recommendations To Nursing Amount of Assist 1 Person Assist Needed Discharge Recommendations PT Discharge SNF Rehab Recommendations Transportation Needs Wheelchair/Cabulance at Discharge - PT assist 1
--- NOTE | 2025-02-01 19:58 | PC.NURSE ---
vitals are not within normal limits notified RN on duty
[2025-02-01] MEDS: guaiFENesin Solution 100 MG/5 ML UDC 200 MG PO (22:17)
[2025-02-02] VITALS (60 sets, daily range): BP systolic 89–118; BP diastolic 50–86; PULSE 87–118; RESP 12–25; TEMP 35.7–36.7; O2SAT 92–100
[2025-02-02] MEDS: FUROSEMIDE 40 MG/4 ML VIAL IV ×4 (00:16→22:43)
[2025-02-02 00:22] LABS: Allen Test for ABG Passed? Positive; Blood Gas Collection Site Right Radial; Delivery System AeroTx; HCO3 ABG 24 mmol/L (23-27); Oxygen Saturation ABG 100 % (95-100); PCO2 ABG 50.9 mmHg (35-45); PO2 ABG 206 mmHg (80-100); TCO2 ABG 23 mmol/L (23-27)
[2025-02-02] MEDS: ALBUTEROL/IPRATROPIUM 3 ML AMPUL INH ×3 (07:33→19:35)
[2025-02-02] MEDS: BUDESONIDE 0.5 MG/2 ML NEB INH ×2 (07:33→19:35)
[2025-02-02 08:01] LABS: Alanine Aminotransferase 27 IU/L (<50); Albumin 3.9 g/dL (3.5-5.0); Albumin Globulin Ratio 1.3 (1.0-2.8); Alkaline Phosphatase 65 U/L (38-126); Blood Urea Nitrogen 20 mg/dL (9-20); Calcium 8.7 mg/dL (8.4-10.2); Carbon Dioxide 27 mmol/L (22-32); Chloride 96 mmol/L (98-107); Estimated Glomerular Filt Rate > 60 mL/min (>60); Globulin 3.1 g/dL (1.7-4.1); Glucose 147 mg/dL (70-99); HEMOLYSIS 34 (0-50); Potassium 4.4 mmol/L (3.4-5.1); Sodium 132 mmol/L (137-145); Total Protein 7.0 g/dL (6.3-8.2)
[2025-02-02 08:10] LABS: NT-proBNP (BNP-Adult 18+) 9230 pg/mL (<125)
[2025-02-02] MEDS: ENOXAPARIN 40 MG/0.4 ML SYRINGE SUBCUT (08:33)
[2025-02-02] MEDS: AZITHROMYCIN 250 MG TABLET PO (09:41)
--- NOTE | 2025-02-02 12:03 | CM.DPC ---
DCP SNF vs Home Per MD, pt has been on bipap through much of the morning and will reduce his IV steroids today but will continue with Lasix and IV abx to help with pt's SOB and fluid overload. Anticipate pt here through the weekend. Per PT yesterday, pt with poor activity tolerance and SOB and was SBA for bed mobility but mod to max assist with ambulation and currently recommending SNF rehab. SW met bedside with pt and explained role and he confirms that he typically ambulates independently without DME but does have a walking stick for longer distances if needed. Pt normally independent with ADLs and drives up until about 2 weeks ago when he began feeling poorly and was needing more assist. Pt denies any hx of HH or SNF and states his preference is home if possible but does not want another incident like this and to feel unsafe at home. CAMDEN provided the SNF Choice list and discussed Medicare coverage of SNF and pt states plan A) home with maybe HH if needed B) SNF on [place] if home is not safe at d/c. [facility] made initial referral to [facility] in case SNF needed. PASRR not yet done. Plan: SW to follow closely for further PT/OT to determine home vs SNF pending progress and [facility] review. JAMEL Rowe
--- NOTE | 2025-02-02 12:32 | PM.PN.1 ---
Subjective Subjective Interval history: 64-year-old gentleman with known COPD, active tobacco dependence 1 pack per day and hypertension who was admitted early yesterday morning with acute hypoxic respiratory failure. He was found to have severe acute systolic congestive heart failure with an ejection fraction of 15-20% as well as severe mitral regurgitation. Additionally, he has known pulmonary nodules 1 of which was noted to be spiculated that had grown between December 2023 and June of 2024. It was recommended he undergo a PET-CT scan. However he reported he missed 6 appointments and they would no longer allow the PET-CT to be scheduled in [place]. Is now being seen at the [facility] in [place]. Tells me he had a CT scan done on the of last month and is now awaiting further referrals. It is unclear if he is being referred for a bronchoscopy or additional imaging. He states he is feeling significantly improved today. He is less short of breath. He did have an ABG done overnight and has been on BiPAP until the time of my assessment. No cough or sputum production. Exam Vital Signs (past 8 hours): - 02/02/25 04:57 02/02/25 05:00 02/02/25 05:00 Temperature Pulse Rate 90 Respiratory Rate 16 Blood Pressure 92/54 L Pulse Oximetry 98 Oxygen Delivery Method Oxygen Flow Rate Fraction of Inspired Oxygen 40 02/02/25 05:30 02/02/25 05:30 02/02/25 05:31 Temperature Pulse Rate 89 Respiratory Rate 16 Blood Pressure 89/55 L 91/58 L Pulse Oximetry 98 Oxygen Delivery Method Oxygen Flow Rate Fraction of Inspired Oxygen 02/02/25 05:31 02/02/25 06:00 02/02/25 06:00 Temperature Pulse Rate 92 H 93 H Respiratory Rate 21 16 Blood Pressure 93/61 Pulse Oximetry 98 98 Oxygen Delivery Method Oxygen Flow Rate Fraction of Inspired Oxygen 02/02/25 06:30 02/02/25 06:30 02/02/25 07:00 Temperature Pulse Rate 97 H Respiratory Rate 15 Blood Pressure 100/62 108/64 Pulse Oximetry 98 Oxygen Delivery Method Oxygen Flow Rate Fraction of Inspired Oxygen 02/02/25 07:00 02/02/25 07:00 02/02/25 07:29 Temperature Pulse Rate 98 H 96 H Respiratory Rate 21 18 Blood Pressure Pulse Oximetry 98 98 Oxygen Delivery Method BiPAP Oxygen Flow Rate Fraction of Inspired Oxygen 02/02/25 07:30 02/02/25 07:30 02/02/25 07:34 Temperature Pulse Rate 95 H Respiratory Rate 17 Blood Pressure 102/64 Pulse Oximetry 98 Oxygen Delivery Method Oxygen Flow Rate Fraction of Inspired Oxygen 40 02/02/25 08:00 02/02/25 08:00 02/02/25 08:30 Temperature Pulse Rate 92 H 89 Respiratory Rate 18 17 Blood Pressure 96/59 L Pulse Oximetry 98 98 Oxygen Delivery Method Oxygen Flow Rate Fraction of Inspired Oxygen 02/02/25 08:30 02/02/25 09:00 02/02/25 09:00 Temperature Pulse Rate 92 H Respiratory Rate 18 Blood Pressure 97/55 L 104/62 Pulse Oximetry 99 Oxygen Delivery Method Oxygen Flow Rate Fraction of Inspired Oxygen 02/02/25 09:30 02/02/25 09:30 02/02/25 10:00 Temperature Pulse Rate 94 H 99 H Respiratory Rate 17 16 Blood Pressure 105/67 Pulse Oximetry 99 99 Oxygen Delivery Method Oxygen Flow Rate Fraction of Inspired Oxygen 02/02/25 10:00 02/02/25 10:30 02/02/25 10:30 Temperature Pulse Rate 96 H Respiratory Rate 16 Blood Pressure 107/69 107/67 Pulse Oximetry 98 Oxygen Delivery Method Oxygen Flow Rate Fraction of Inspired Oxygen 02/02/25 11:00 02/02/25 11:00 02/02/25 11:30 Temperature Pulse Rate 93 H Respiratory Rate 16 Blood Pressure 100/64 98/60 Pulse Oximetry 99 Oxygen Delivery Method Oxygen Flow Rate Fraction of Inspired Oxygen 02/02/25 11:30 02/02/25 12:00 02/02/25 12:21 Temperature 96.3 F L Pulse Rate 97 H 89 Respiratory Rate 21 18 Blood Pressure Pulse Oximetry 98 98 Oxygen Delivery Method Room Air Oxygen Flow Rate 0 Fraction of Inspired Oxygen 21 Fraction of Inspired Oxygen 21 SaO2/FiO2 Ratio 409 Oxygen Delivery Method Room Air Oxygen Flow Rate 0 Narrative Exam Narrative: GEN: Chronically ill-appearing middle-aged male, Alert and oriented x 3, NAD, thin HEENT:NC, Face symmetric CHEST: Respiratory excursions symmetric, diminished in the bases but CTAB CV: RRR, no M/R/G ABD: Soft, NT/ND, BT present in all 4 quadrants, no organomegaly or masses EXTR: warm, well perfused, no C/C/E SKIN: warm and dry, no rash NEURO: Alert and oriented x 3, nonfocal Objective Labs 02/01/25 04:57 02/02/25 07:40 Labs: Laboratory Results - last 24 hr 02/02/25 02/02/25 00:18 07:40 ABG Sample Site Right radial ABG pH 7.27 L* ABG pCO2 50.9 H ABG pO2 206 H ABG HCO3 24 ABG Total CO2 23 ABG O2 Saturation 100 ABG Base Excess -3.7 L [place] Test Positive O2 Delivery Device Aerotx FiO2 % 100 % Sodium 132 L Potassium 4.4 Chloride 96 L Carbon Dioxide 27 BUN 20 Creatinine 0.78 Estimated GFR > 60 BUN/Creatinine Ratio 25.6 H Glucose 147 H Calcium 8.7 Total Bilirubin 0.8 AST 43 ALT 27 Alkaline Phosphatase 65 NT-Pro-B Natriuret Pep 9230 H Total Protein 7.0 Albumin 3.9 Globulin 3.1 Albumin/Globulin Ratio 1.3 PFSH Social History household members: none Smoking Status: Current every day smoker Assessment & Plan Assessment & Plan narrative: 1. Acute hypoxic respiratory failure Patient developed respiratory acidosis overnight and required BiPAP. He is now on supplemental O2 at 2 liters/minute. We will continue to wean as able. Etiology is likely more due to acute CHF rather than his underlying COPD. 2. Acute severe systolic congestive heart failure EF is 15-20%. He continues diuresis, which he is tolerating fairly well. Suspect he will need cardiac workup for ischemic disease given his left bundle branch block. He will also need further evaluation for mitral valve replacement 3. Severe mitral valve regurgitation As above, likely will require further workup for mitral valve replacement. 4. COPD He has not oxygen dependent at baseline. Will continue nebulizers and supplemental oxygen for now. Will wean steroids. 5. Spiculated cavitary nodule in the left upper lung measuring 1.2 cm He reports he [facility] We will attempt to get a copy 6. Paroxysmal SVT He did have a 10 second run of paroxysmal SVT, asymptomatic this afternoon. Will send a magnesium level. 7. Hypertension Hold amlodipine Code status Full Prophylaxis On Lovenox Disposition Pending Time-Based Coding :: [TOTAL MINUTES] spent with patient and on the chart (including review of chart, obtaining history, exam, reviewing outside data, placing orders, documenting exam and treatment plan, and counseling patient) on [DATE].
[2025-02-02 12:55] LABS: Magnesium 1.9 mg/dL (1.6-2.3)
--- NOTE | 2025-02-02 13:17 | PC.NURSE ---
Addendum entered by Frank Mora R.N. 02/02/25 18:01: 1725 - Resting HR sustained 120, Dr Mayfield notified, 25mg PO Metoprolol ordered. Addendum entered by Frank Mora R.N. 02/02/25 14:02: 1235 - Patient sustained SVT for roughly 10 seconds, Dr Mayfield alerted. Original Note: Per RT, patient placed on BiPAP around 0030 02/02/25 due to severe SOB and tripoding. BiPAP removed at 1130, now on 2L NC at 93%. A/Ox4, fatigued, but otherwise cooperative and appropriate.
--- NOTE | 2025-02-02 15:10 | PT.IPTN ---
Current Diagnoses Chronic obstructive pulmonary disease with (acute) exacerbation (02/01/25) Physical Therapy Treatment Note M2 PT-IP Current Condition Start: 02/01/25 17:24 Freq: NEEDED Status: Active Protocol: Document 02/01/25 16:35 AB (Rec: 02/01/25 17:44 AB [id number]) Physical Therapy Current Condition Current Condition Evaluation Date 02/01/25 Treatment Diagnosis COPD exacerbation; CHF; difficulty in walking Onset Date 02/01/25 M3 PT-IP Subjective Start: 02/01/25 17:24 Freq: NEEDED Status: Active Protocol: Document 02/02/25 15:10 AB (Rec: 02/02/25 16:40 AB Desktop) Subjective Physical Therapy Visit Type Type Treatment Note Visit Start Time 15:10 Visit Stop Time 15:45 Number of ACCOUNTING TECHNICIAN Visits 0 Physical Therapy Visit Comments Patient Comments agreed to get up M4 PT-IP Mobility and Gait Start: 02/01/25 17:24 Freq: NEEDED Status: Active Protocol: Document 02/02/25 15:10 AB (Rec: 02/02/25 16:39 AB Desktop) PT-Bed Mobility Assessment Supine to Sit Supine to Sit Standby Assistance PT-Transfer Assessment Sit to and From Stand Sit to and from Moderate Assistance,1 Person Assistance,Use of Upper Stand Extremities Equipment Transfer Assistive Gait Belt,Front Wheeled Walker Device Orthotic/Prosthetic No Devices or Brace: Transfers Transfer Destination Chair Transfer Technique Stand Step Pivot Transfer Ability Level of Assist Moderate Assistance,1 Person Assistance,Use of Upper Extremities Comments Mobility Comments pt in bed and agreeable to do PT. BP: 110/63 O2 sat with 2L/min O2: 95% AR: 94 completed supine to sit SBA. able to sit on EOB SBA. c/ o lightheadedness/dizziness. BP: 101/64 O2 sat: 94% AR: 111. cued for PLB. BP rechecked after resting a a few minutes sitting on EOB: 105/65. AR: 109-116. O2 sat: 94%. sit to stand mod A and cues. no c/o pain. step transfer to chair mod A and cues using FWW. positioned pt on the chair. O2 sat: 88% but with good recovery to 92% after deep breathing. AR: 122. pt refused further activities and stated that he just wants to sit up on the chair. call light and table placed within reach. informed nurse. M5 PT-IP Objective Assessments Start: 02/01/25 17:24 Freq: NEEDED Status: Active Protocol: Document 02/01/25 16:35 AB (Rec: 02/01/25 17:44 AB [id number]) Orientation Orientation/Cognition Level of Alertness Alert Orientation Name,Place,Situation Language Function No Deficits Noted Ability Safety Awareness Decreased Safety Awareness Gross Range of Motion Lower Extremity ROM Assessment Within Functional Limits Strength Lower Extremity Strength Hip 4-/5 Knee 4-/5 Sensation Assessment Sensation Gross Sensation Right UE Impaired,Left UE Impaired,Right LE Impaired, Left LE Impaired Sensation Numbness Description Comments Sensation Comments stated chronic numbness on B feet and B hands Muscle Tone Muscle Tone WNL Yes M6 PT-IP Treatment Start: 02/01/25 17:24 Freq: NEEDED Status: Active Protocol: Document 02/02/25 15:10 AB (Rec: 02/02/25 16:39 AB Desktop) Physical Therapy Treatment Education Education Provided Safety M7 PT-IP Assessment and Plan Start: 02/01/25 17:24 Freq: NEEDED Status: Active Protocol: Document 02/02/25 15:10 AB (Rec: 02/02/25 16:39 AB Desktop) PT Summary Assessment and Plan Potential Rehabilitation Fair Potential Summary Impairments Pain,ROM,Strength,Balance,Coordination,Sensation,Tone, Cognition,Bed Mobility,Transfers,Gait,Activity Tolerance Progress Towards Slow Progress due to Medical Issues,Slow Progress due Goals to Activity Tolerance Assessment Summary pt improving slowly with mobility and able to transfer to chair mod A using FWW but continues to have decrease activity tolerance and unable to ambulate today. pt will benefit from SNF rehab to improve overall strength and independence. Goals Bed Mobility Goal Independent Transfer Goal Standby Assistance,Front Wheeled Walker Gait Goal Standby Assistance,Front Wheel Walker Gait Distance 50 Other Goals improve transfers, ambulation using LRAD 150 ft mod I up/down 3 steps L rail ascending SBA Days to Meet Goals 10 Frequency of Treatment Frequency Of Once a Day Treatment Treatment Plan Physical Therapy Bed Mobility Training,Transfer Training,Gait Training, Treatment Plan Therapeutic Exercise,Balance Retraining,Discharge Planning,Hot or Cold Pack,Neuromuscular Re-ed, Coordination Retraining Precautions Other Precautions falls, o2 sat, AR Recommendations To Nursing Amount of Assist 1 Person Assist Needed Discharge Recommendations PT Discharge SNF Rehab Recommendations Transportation Needs Wheelchair/Cabulance at Discharge - PT assist 1
[2025-02-02] MEDS: METOPROLOL ER 25 MG TABLET PO ×2 (17:45→21:02)
--- NOTE | 2025-02-02 18:53 | RT ---
Late Entry Approx 2330 on 02/01/25 I was called by BUTTON DECORATING MACHINE OPERATOR to room for patient in Resp distress. Upon arrival , pt was sitting up in bed having difficult time cathching breath. I initiated a PRN duoneb tx which gave little relief, 2 more were given for total of 9mg. Pt was very restless and SOB continued. RN's & charge nurse at bedside. B/S coarse exp wheeze on L and diminished exp wheeze on R. Stat Xray done and physician called. Post ABG, patient moved to ICU and placed on BIPAP. Before BIPAP, patient showed some relief and was starting to relax, RR still around 30. BIPAP explained and pt understood how it worked, placed on Large mask w/ initial settings of 12 / 6 60% Fio2. Tolereated well and eventually titrated down to 40% before end of shift
--- NOTE | 2025-02-02 20:35 | PC.NURSE ---
Pt. back to bed at 2014 and placed on Bipap with I/E-/, R-12, Fi02-40%.
[2025-02-02] MEDS: SODIUM CHLORIDE 0.9% FLUSH 10 ML IV ×2 (21:11→22:44)
--- NOTE | 2025-02-02 23:59 | DI.RAD.S_ITS ---
PROCEDURE: XR CHEST 1V INDICATIONS: shortness of breath TECHNIQUE: One view of the chest was acquired. COMPARISON: [facility], CT, CT CHEST WO CON, 06/29/2024, 14:32. [facility], CR, XR CHEST 1V, 01/31/2025, 20:08. FINDINGS: Surgical changes and devices: None. Lungs and pleura: Multiple pulmonary nodules are again noted. Bronchial thickening, smooth interstitial thickening and small pleural effusions. Bibasilar atelectasis. Mediastinum: Mediastinal contours appear normal. Heart size is enlarged. Bones and chest wall: No suspicious bony lesions. Overlying soft tissues appear unremarkable. IMPRESSION: Moderate pulmonary edema and small pleural effusions. Scattered pulmonary nodules. Some of these require further workup as noted on CT dated 06/29/2024, if not already obtained. Dictated by: Milton Rhoades M.D. on 02/02/2025 at 0:17 Approved by: Milton Rhoades M.D. on 02/02/2025 at 0:19
[2025-02-03] VITALS (56 sets, daily range): BP systolic 96–118; BP diastolic 57–79; PULSE 72–118; RESP 12–36; TEMP 36.3; O2SAT 91–98
[2025-02-03 04:55] LABS: Add Manual Diff / Slide Review NO; Hematocrit 31.8 % (41-53); Hemoglobin 11.2 g/dL (13.5-17.5); Lymphocytes Absolute Auto 600 /uL (1100-4500); Mean Corpuscular HGB Conc 35.1 % (30-36); Mean Corpuscular Hemoglobin 35.0 PG (26-34); Mean Corpuscular Volume 99.8 fL (80-100); Platelet Count 203 X10^3/uL (150-400)
[2025-02-03 05:22] LABS: Blood Urea Nitrogen 24 mg/dL (9-20); Calcium 8.9 mg/dL (8.4-10.2); Carbon Dioxide 30 mmol/L (22-32); Chloride 95 mmol/L (98-107); Estimated Glomerular Filt Rate > 60 mL/min (>60); Glucose 132 mg/dL (70-99); HEMOLYSIS < 15 (0-50); Potassium 4.0 mmol/L (3.4-5.1); Sodium 131 mmol/L (137-145)
[2025-02-03] MEDS: FUROSEMIDE 40 MG/4 ML VIAL IV (06:26)
[2025-02-03] MEDS: SODIUM CHLORIDE 0.9% FLUSH 10 ML IV ×3 (06:27→20:10)
[2025-02-03] MEDS: ALBUTEROL/IPRATROPIUM 3 ML AMPUL INH ×3 (07:43→19:56)
[2025-02-03] MEDS: BUDESONIDE 0.5 MG/2 ML NEB INH ×2 (07:43→19:56)
[2025-02-03] MEDS: ENOXAPARIN 40 MG/0.4 ML SYRINGE SUBCUT (08:14)
[2025-02-03] MEDS: AZITHROMYCIN 250 MG TABLET PO (08:14)
[2025-02-03] MEDS: METOPROLOL ER 25 MG TABLET PO ×2 (08:14→20:09)
--- NOTE | 2025-02-03 12:14 | PT.IPTN ---
Current Diagnoses Chronic obstructive pulmonary disease with (acute) exacerbation (02/01/25) Physical Therapy Treatment Note M2 PT-IP Current Condition Start: 02/01/25 17:24 Freq: NEEDED Status: Active Protocol: Document 02/01/25 16:35 AB (Rec: 02/01/25 17:44 AB [id number]) Physical Therapy Current Condition Current Condition Evaluation Date 02/01/25 Treatment Diagnosis COPD exacerbation; CHF; difficulty in walking Onset Date 02/01/25 M3 PT-IP Subjective Start: 02/01/25 17:24 Freq: NEEDED Status: Active Protocol: Document 02/03/25 11:58 MB (Rec: 02/03/25 12:14 MB Desktop) Subjective Physical Therapy Visit Type Type Treatment Note Visit Start Time 11:58 Visit Stop Time 12:06 Number of RN ANGIOGRAPHY Visits 0 Physical Therapy Visit Comments Patient Comments Pt is agreeable to PT. Pt con't with O2 and many lines. M4 PT-IP Mobility and Gait Start: 02/01/25 17:24 Freq: NEEDED Status: Active Protocol: Document 02/03/25 11:58 MB (Rec: 02/03/25 12:14 MB Desktop) PT-Bed Mobility Assessment Supine to Sit Supine to Sit Standby Assistance Scooting Scooting to Edge of Standby Assistance Bed PT-Transfer Assessment Sit to and From Stand Sit to and from Contact Guard Assistance,1 Person Assistance,Use of Stand Upper Extremities Equipment Transfer Assistive None Device Transfers Transfer Destination Chair Transfer Technique Stand Step Pivot Transfer Ability Level of Assist Contact Guard Assistance,Use of Upper Extremities Comments Mobility Comments Pt moving quickly and not waiting for PT to adjust, PT manages lines and pt steps to the chair. HR 87-92 BPM with getting up to the chair today. CRUZ. M5 PT-IP Objective Assessments Start: 02/01/25 17:24 Freq: NEEDED Status: Active Protocol: Document 02/01/25 16:35 AB (Rec: 02/01/25 17:44 AB [id number]) Orientation Orientation/Cognition Level of Alertness Alert Orientation Name,Place,Situation Language Function No Deficits Noted Ability Safety Awareness Decreased Safety Awareness Gross Range of Motion Lower Extremity ROM Assessment Within Functional Limits Strength Lower Extremity Strength Hip 4-/5 Knee 4-/5 Sensation Assessment Sensation Gross Sensation Right UE Impaired,Left UE Impaired,Right LE Impaired, Left LE Impaired Sensation Numbness Description Comments Sensation Comments stated chronic numbness on B feet and B hands Muscle Tone Muscle Tone WNL Yes M6 PT-IP Treatment Start: 02/01/25 17:24 Freq: NEEDED Status: Active Protocol: Document 02/03/25 11:58 MB (Rec: 02/03/25 12:14 MB Desktop) Physical Therapy Treatment Education Education Provided Safety M7 PT-IP Assessment and Plan Start: 02/01/25 17:24 Freq: NEEDED Status: Active Protocol: Document 02/03/25 11:58 MB (Rec: 02/03/25 12:14 MB Desktop) PT Summary Assessment and Plan Potential Rehabilitation Fair Potential Status of Condition Evolving at Evaluation Summary Impairments Pain,ROM,Strength,Balance,Coordination,Sensation,Tone, Cognition,Bed Mobility,Transfers,Gait,Activity Tolerance Progress Towards Slow Progress due to Medical Issues,Slow Progress due Goals to Activity Tolerance Assessment Summary Pt agreeable to get up to the chair for lunch. His HR does not increase as much as previous dates. He presents with decreased safety awareness and imbalance. He con't with O2 and many lines. Goals Bed Mobility Goal Independent Transfer Goal Standby Assistance,Front Wheeled Walker Gait Goal Standby Assistance,Front Wheel Walker Gait Distance 50 Other Goals improve transfers, ambulation using LRAD 150 ft mod I up/down 3 steps L rail ascending SBA Days to Meet Goals 10 Frequency of Treatment Frequency Of Once a Day Treatment Treatment Plan Physical Therapy Bed Mobility Training,Transfer Training,Gait Training, Treatment Plan Therapeutic Exercise,Balance Retraining,Discharge Planning,Hot or Cold Pack,Neuromuscular Re-ed, Coordination Retraining Precautions Other Precautions falls, O2 sat, NC Recommendations To Nursing Amount of Assist 1 Person Assist Needed Discharge Recommendations PT Discharge SNF Rehab Recommendations Transportation Needs Wheelchair/Cabulance at Discharge - PT assist x1
--- NOTE | 2025-02-03 20:08 | PM.PN.1 ---
Subjective Subjective Interval history: 64-year-old gentleman with known COPD, active tobacco dependence 1 pack per day and hypertension who was admitted early yesterday morning with acute hypoxic respiratory failure. He was found to have severe acute systolic congestive heart failure with an ejection fraction of 15-20% as well as severe mitral regurgitation. Additionally, he has known pulmonary nodules 1 of which was noted to be spiculated that had grown between December 2023 and June of 2024. It was recommended he undergo a PET-CT scan. However he reported he missed 6 appointments and they would no longer allow the PET-CT to be scheduled in [place]. Is now being seen at the [facility] in [place]. Tells me he had a CT scan done on the of last month and is now awaiting further referrals. It is unclear if he is being referred for a bronchoscopy or additional imaging. Patient seen this morning still on BiPAP. He reports that he is feeling better. Less short of breath overall. Slept fairly well overnight. No other complaints. Exam Vital Signs (past 8 hours): - 02/03/25 12:19 02/03/25 12:30 02/03/25 13:00 Temperature Pulse Rate 96 H 94 H Respiratory Rate 18 24 Blood Pressure 104/79 Pulse Oximetry 95 95 Oxygen Delivery Method Nasal Cannula Oxygen Flow Rate 2 Fraction of Inspired Oxygen 28 02/03/25 13:00 02/03/25 13:30 02/03/25 14:00 Temperature Pulse Rate 98 H 95 H 91 H Respiratory Rate 23 24 23 Blood Pressure Pulse Oximetry 94 95 95 Oxygen Delivery Method Oxygen Flow Rate Fraction of Inspired Oxygen 02/03/25 14:00 02/03/25 14:30 02/03/25 15:00 Temperature Pulse Rate 101 H 102 H Respiratory Rate 26 H 24 Blood Pressure 97/62 Pulse Oximetry 96 94 Oxygen Delivery Method Oxygen Flow Rate Fraction of Inspired Oxygen 02/03/25 15:00 02/03/25 15:30 02/03/25 16:00 Temperature 97.4 F L Pulse Rate 101 H Respiratory Rate 24 Blood Pressure 114/76 Pulse Oximetry 95 Oxygen Delivery Method Oxygen Flow Rate Fraction of Inspired Oxygen 02/03/25 16:00 02/03/25 16:00 02/03/25 16:30 Temperature Pulse Rate 102 H 101 H Respiratory Rate 25 H 23 Blood Pressure 115/75 Pulse Oximetry 94 95 Oxygen Delivery Method Oxygen Flow Rate Fraction of Inspired Oxygen 02/03/25 17:00 02/03/25 17:00 02/03/25 17:30 Temperature Pulse Rate 97 H 95 H Respiratory Rate 24 19 Blood Pressure 102/69 Pulse Oximetry 94 95 Oxygen Delivery Method Oxygen Flow Rate Fraction of Inspired Oxygen 02/03/25 18:00 02/03/25 18:00 02/03/25 18:30 Temperature Pulse Rate 99 H 113 H Respiratory Rate 16 35 H Blood Pressure 108/72 Pulse Oximetry 92 92 Oxygen Delivery Method Oxygen Flow Rate Fraction of Inspired Oxygen 02/03/25 19:00 02/03/25 19:00 02/03/25 19:00 Temperature 97.4 F L Pulse Rate 94 H Respiratory Rate 25 H Blood Pressure 106/70 Pulse Oximetry 94 Oxygen Delivery Method Oxygen Flow Rate Fraction of Inspired Oxygen 02/03/25 19:30 Temperature Pulse Rate 94 H Respiratory Rate 19 Blood Pressure Pulse Oximetry 96 Oxygen Delivery Method Oxygen Flow Rate Fraction of Inspired Oxygen Fraction of Inspired Oxygen 28 SaO2/FiO2 Ratio 339 Oxygen Delivery Method Nasal Cannula Oxygen Flow Rate 2 Narrative Exam Narrative: GEN: Chronically ill-appearing middle-aged male, Alert and oriented x 3, NAD, thin HEENT:NC, Face symmetric CHEST: Respiratory excursions symmetric, diminished and coarse in the bases but CTAB CV: RRR, no M/R/G ABD: Soft, NT/ND, BT present in all 4 quadrants, no organomegaly or masses EXTR: warm, well perfused, no C/C/E, chronic venous stasis changes noted bilaterally SKIN: warm and dry, no rash NEURO: Alert and oriented x 3, nonfocal Objective Labs 02/03/25 04:13 02/03/25 04:13 Labs: Laboratory Results - last 24 hr 02/03/25 04:13 WBC 7.6 D RBC 3.19 L Hgb 11.2 L Hct 31.8 L MCV 99.8 MCH 35.0 H MCHC 35.1 RDW 14.4 Plt Count 203 Neut % (Auto) 84.6 H Lymph % (Auto) 8.3 L [place] % (Auto) 7.0 Eos % (Auto) 0.0 L Baso % (Auto) 0.1 Neut # (Auto) 6500 Lymph # (Auto) 600 L [place] # (Auto) 500 Eos # (Auto) 0 Baso # (Auto) 0 Sodium 131 L Potassium 4.0 Chloride 95 L Carbon Dioxide 30 BUN 24 H Creatinine 0.80 Estimated GFR > 60 BUN/Creatinine Ratio 30.0 H Glucose 132 H Calcium 8.9 PFSH Social History household members: none Smoking Status: Current every day smoker Assessment & Plan Assessment & Plan narrative: 1. Acute hypoxic respiratory failure Continuing to improve. He is using BiPAP at night and as needed and supplemental oxygen at 2 liters/minute. Etiology is likely more due to acute CHF rather than his underlying COPD. Day 3/5 of ceftriaxone. 2. Acute severe systolic congestive heart failure EF is 15-20%. He continues diuresis, which he is tolerating fairly well. Given his overall poor condition, particularly in light of possible malignancy, depending on his goals of care, he may not require referral for cardiac workup for possible ischemia or mitral valve replacement. DC IV Lasix yesterday and started oral furosemide today. 3. Severe mitral valve regurgitation As above. 4. COPD He has not oxygen dependent at baseline. Will continue nebulizers and supplemental oxygen for now. Day 2 of prednisone 40 mg daily. 5. Spiculated cavitary nodule in the left upper lung measuring 1.2 cm He reports he had a CT scan done last month through the [facility]. We will attempt to get a [facility] tomorrow. 6. Paroxysmal SVT He did have a 10 second run of paroxysmal SVT, asymptomatic yesterday. Magnesium level was within normal limits. Metoprolol initiated yesterday which he is tolerating well. 7. Hypertension Hold amlodipine. Metoprolol initiated yesterday as noted, which he is tolerating well. Code status Full Prophylaxis On Lovenox Disposition custodial facility for rehab if patient is amenable. Time-Based Coding :: [TOTAL MINUTES] spent with patient and on the chart (including review of chart, obtaining history, exam, reviewing outside data, placing orders, documenting exam and treatment plan, and counseling patient) on [DATE].
[2025-02-03] MEDS: FLUTICASONE 120 SPRAY/16 GM SPRAY.SUSP NASAL (20:10)
[2025-02-03 21:53] LABS: MRSA (Nasal) PCR NOT DETECTED (Not Detect)
[2025-02-04] VITALS (59 sets, daily range): BP systolic 101–119; BP diastolic 57–83; PULSE 73–109; RESP 10–36; TEMP 35.9–36.8; O2SAT 93–100
[2025-02-04] MEDS: ALBUTEROL/IPRATROPIUM 3 ML AMPUL INH ×4 (00:58→19:02)
[2025-02-04 05:19] LABS: Add Manual Diff / Slide Review NO; Hematocrit 32.4 % (41-53); Hemoglobin 11.3 g/dL (13.5-17.5); Lymphocytes Absolute Auto 1900 /uL (1100-4500); Mean Corpuscular HGB Conc 35.0 % (30-36); Mean Corpuscular Hemoglobin 34.9 PG (26-34); Mean Corpuscular Volume 99.9 fL (80-100); Platelet Count 194 X10^3/uL (150-400)
[2025-02-04 05:41] LABS: Blood Urea Nitrogen 28 mg/dL (9-20); Calcium 8.7 mg/dL (8.4-10.2); Carbon Dioxide 32 mmol/L (22-32); Chloride 94 mmol/L (98-107); Estimated Glomerular Filt Rate > 60 mL/min (>60); Glucose 101 mg/dL (70-99); HEMOLYSIS < 15 (0-50); Potassium 3.5 mmol/L (3.4-5.1); Sodium 131 mmol/L (137-145)
[2025-02-04] MEDS: METOPROLOL ER 25 MG TABLET PO ×2 (08:10→20:22)
[2025-02-04] MEDS: ENOXAPARIN 40 MG/0.4 ML SYRINGE SUBCUT (08:11)
[2025-02-04] MEDS: SODIUM CHLORIDE 0.9% FLUSH 10 ML IV ×2 (08:12→20:22)
[2025-02-04] MEDS: FUROSEMIDE 40 MG TABLET PO (08:15)
[2025-02-04] MEDS: BUDESONIDE 0.5 MG/2 ML NEB INH ×2 (08:18→19:02)
[2025-02-04] MEDS: AZITHROMYCIN 250 MG TABLET PO (09:03)
[2025-02-04] MEDS: POTASSIUM CHLORIDE 20 MEQ TAB 40 MEQ PO (09:08)
--- NOTE | 2025-02-04 09:34 | CM.DPC ---
DCP SNF Planning Cont: Per RN, pt still used bipap overnight but on 2LO2 this morning and making slow progress. Per PT eval and PT yesterday, still recommending SNF at d/c as pt deconditioned and SOB and fatigues quickly. Rajwinder Otoole admissions back in the office today and reviewing. Faxed updated clinicals. SW met bedside with pt and explained role again and pt confirms he is feeling better but still having some difficulty feeling SOB and deconditioned. Pt confirms his preference remains home if safe, but confirms if SNF needed at d/c he would be agreeable to SNF before home. PASRR done in anticipation of SNF. Plan: SW to follow closely for [facility] review to confirm they can accept under pt's Medicare for likely SNF before return home. JAMEL Rowe
--- NOTE | 2025-02-04 10:59 | DIET.PN1 ---
Addendum entered by Korina Bee 02/04/25 15:20: F/u- pt reports tolerating ONS, trying to drink it as able. Original Note: Dietary Progress Note Assessment: Attempted f/u, pt asked to come back another time. Pt was eating breakfast though. Recorded PO intakes 75-85%. F/u as able later today or tomorrow on ONS tolerance. Ht: 182.88 cm Wt: 57.3 kg BMI: 17.8 Last BM: 01/29/25 (02/01/25 00:57) MNA: 5 Ashwin Score: 19 Diet: 02/01/25 Breakfast Heart Healthy Diet Diet Modifications: Labs: RBC 3.25 X10^6/uL (4.5-5.9) L 02/04/25 04:19 Hgb 11.3 g/dL (13.5-17.5) L 02/04/25 04:19 Hct 32.4 % (41-53) L 02/04/25 04:19 Creatinine 0.71 mg/dL (0.66-1.25) 02/04/25 04:19 Lactate 1.0 mmol/L (0.7-2.1) 01/31/25 20:40 NT-Pro-B Natriuret Pep 9230 pg/mL (<125) H 02/02/25 07:40 Electronically Signed by: Korina Bee 02/04/25 10:59 Clinical Dietitian [address] [address]
[2025-02-04] MEDS: OXYBUTYNIN 5 MG TABLET PO ×2 (12:08→20:25)
[2025-02-04] MEDS: LIDOCAINE 2% (GLYDO) 6 ML GEL TOP (12:08)
--- NOTE | 2025-02-04 12:42 | P.PN_ITS ---
Subjective Subjective Date Patient Seen: 02/04/25 Interval history: Chief complaint: Severe dyspnea hypoxic respiratory failure secondary to COPD and acute on chronic congestive heart failure History of present illness: 02/01: 64-year-old male with past medical history of COPD not oxygen dependent, active tobacco smoking 1 pack/day and hypertension presents with complaint of shortness of breath. Per the patient's report, over the last few days, the patient noticed increased dry cough and shortness of breath. The patient admits she has some orthopnea. The patient states that he does have some chronic lower extreme edema but is unable to tell if it is worsening or not. The patient otherwise denies any chest pain, fever, chills, nausea, vomiting, diarrhea or syncope. Patient however admits to have some wheezing. In the emergency room, the patient was hemodynamically stable. However the patient did require 2 L of oxygen per nasal cannula. Patient labs shows sodium 130 BNP of 6370 and troponin negative x 2. EKG does not show any sign of acute ischemia. Chest x-ray shows mild bilateral effusion with increased vascularity suggesting edema. The patient was given IV Lasix 40 mg, Solu-Medrol was and DuoNebs. Findings in the emergency department significant for echocardiogram: The left ventricle is moderate-severely dilated. The ejection fraction is estimated to be 15-20%. There is severe global hypokinesis of the left ventricle. Diastolic function is indeterminate. The left atrium is severely dilated. There is severe mitral regurgitation. Pulmonary artery pressures cannot be estimated because of the lack of a measurable TR jet velocity but the IVC suggests a CVP of around 3 mmHg. There is a trivial pericardial effusion noted. Left pleural effusion. Hospital course: 02/01: Improved shortness for breath still requiring nasal cannula has not been out of bed yet 02/02-02/03: Over the weekend patient had multiple episodes of increasing dyspnea shortness for breath and hypoxia transferred to the intensive care unit and intermittently required mechanical assistance with BiPAP. Patient had 2nd run of SVT and patient was initiated on metoprolol oral 02/04: Patient is having continued difficulty with dyspnea and intermittently requiring BiPAP this morning was noted to have urinary urgency bladder scan demonstrated 600 mL residual patient is unable to void a coude' catheter was placed Review of systems: No fevers or chills No chest pains or palpitations No nausea vomiting diarrhea No paresthesia paresis No muscle weakness Physical exam: Very pleasant elderly gentleman HEENT unremarkable Heart sounds distant Lungs are diminished breath sounds at bases Extremities no edema Alert and oriented Neuro nonfocal Objective laboratory and imaging please see the bottom of the note: Assessment and plan: Acute respiratory failure with hypoxia secondary to acute on chronic systolic congestive heart failure EF 15-20% with severe mitral regurgitation and acute exacerbation of COPD * Intermittent BiPAP as still being required * Brisk diuresis monitoring BUN creatinine intake and output 1800 cc fluid restriction and we will continue * Bladder outlet obstruction may have been impeding diuresis hopefully with E[place] catheter placement for both acute obstruction and accurate measurement of in and out take * Systemic steroids with Solu-Medrol * Supplemental oxygen Recurrent pulmonary nodules ongoing since 1997 followed at the [facility]: * he has known pulmonary nodules 1 of which was noted to be spiculated that had grown between December 2023 and June of 2024. It was recommended he undergo a PET-CT scan. However he reported he missed 6 appointments and they would no longer allow the PET-CT to be scheduled in [place]. Is now being seen at the [facility] in [place]. Tells me he had a CT scan done on the of last month and is now awaiting further referrals. It is unclear if he is being referred for a bronchoscopy or additional imaging. * Recent CT scan report faxed from the [facility] system: Impression: * Multiple new pulmonary nodular masslike consolidations predominating in the upper lungs, largest nidus right upper lobe has some air bronchograms and central cavitation measuring at least 15 x 31 mm. Previously new partially cavitary upper lobe nodule has slightly decreased in size and cavitation has resolved. Many of the pre-existing nodules are otherwise stable in size particularly those which are partially calcified. As before findings suggest infectious/inflammatory etiology (granulomatous disease) recommend follow up CT of the chest without contrast in 3 months DVT prophylaxis * Lovenox Code status * Full code blue 55 minutes were involved in managing patient's admission including [id number] patient evaluation review of laboratory and imaging findings. Exam Vital Signs (past 8 hours): - 02/04/25 05:00 02/04/25 05:00 02/04/25 05:00 Temperature 96.7 F L Pulse Rate 86 Respiratory Rate 21 Blood Pressure 108/73 Pulse Oximetry 97 Oxygen Delivery Method Oxygen Flow Rate Fraction of Inspired Oxygen 02/04/25 05:02 02/04/25 05:30 02/04/25 06:00 Temperature Pulse Rate 78 Respiratory Rate 16 Blood Pressure 105/70 Pulse Oximetry 97 Oxygen Delivery Method Oxygen Flow Rate Fraction of Inspired Oxygen 30 02/04/25 06:00 02/04/25 06:30 02/04/25 07:00 Temperature Pulse Rate 74 76 83 Respiratory Rate 16 16 14 Blood Pressure Pulse Oximetry 97 95 97 Oxygen Delivery Method Oxygen Flow Rate Fraction of Inspired Oxygen 02/04/25 07:00 02/04/25 07:30 02/04/25 08:00 Temperature Pulse Rate 77 Respiratory Rate 16 Blood Pressure 107/73 113/78 Pulse Oximetry 97 Oxygen Delivery Method Oxygen Flow Rate Fraction of Inspired Oxygen 02/04/25 08:00 02/04/25 08:00 02/04/25 08:10 Temperature 97.4 F L Pulse Rate 77 89 Respiratory Rate 17 Blood Pressure 113/78 Pulse Oximetry 97 Oxygen Delivery Method Oxygen Flow Rate Fraction of Inspired Oxygen 02/04/25 08:18 02/04/25 08:30 02/04/25 08:40 Temperature Pulse Rate 88 92 H Respiratory Rate 16 16 Blood Pressure Pulse Oximetry 98 99 Oxygen Delivery Method Nasal Cannula Nasal Cannula BiPAP Oxygen Flow Rate 1 Fraction of Inspired Oxygen 02/04/25 09:00 02/04/25 09:00 02/04/25 09:06 Temperature Pulse Rate 90 95 H Respiratory Rate 14 Blood Pressure 113/76 Pulse Oximetry 95 Oxygen Delivery Method Oxygen Flow Rate Fraction of Inspired Oxygen 02/04/25 09:30 02/04/25 10:00 02/04/25 10:00 Temperature Pulse Rate 97 H 96 H Respiratory Rate 30 H 27 H Blood Pressure 119/83 Pulse Oximetry 93 96 Oxygen Delivery Method Oxygen Flow Rate Fraction of Inspired Oxygen 02/04/25 10:30 02/04/25 11:00 02/04/25 11:00 Temperature Pulse Rate 100 H 101 H Respiratory Rate 21 23 Blood Pressure 119/78 Pulse Oximetry 94 94 Oxygen Delivery Method Oxygen Flow Rate Fraction of Inspired Oxygen Fraction of Inspired Oxygen 30 SaO2/FiO2 Ratio 339 Oxygen Delivery Method Nasal Cannula,BiPAP Oxygen Flow Rate 1 Objective Labs 02/04/25 04:19 02/04/25 04:19 Labs: Laboratory Results - last 24 hr 02/03/25 02/04/25 20:30 04:19 WBC 9.4 RBC 3.25 L Hgb 11.3 L Hct 32.4 L MCV 99.9 MCH 34.9 H MCHC 35.0 RDW 14.4 Plt Count 194 Neut % (Auto) 68.2 Lymph % (Auto) 20.5 L [place] % (Auto) 11.1 Eos % (Auto) 0.1 L Baso % (Auto) 0.1 Neut # (Auto) 6400 Lymph # (Auto) 1900 [place] # (Auto) 1000 H Eos # (Auto) 0 Baso # (Auto) 0 Sodium 131 L Potassium 3.5 Chloride 94 L Carbon Dioxide 32 BUN 28 H Creatinine 0.71 Estimated GFR > 60 BUN/Creatinine Ratio 39.4 H Glucose 101 H Calcium 8.7 Nasal Screen MRSA (PCR) Not detected PFSH Social History household members: none Smoking Status: Current every day smoker Assessment & Plan Time-Based Coding :: [TOTAL MINUTES] spent with patient and on the chart (including review of chart, obtaining history, exam, reviewing outside data, placing orders, documenting exam and treatment plan, and counseling patient) on [DATE].
[2025-02-04 13:10] LABS: Appearance Urine UA CLEAR; Bilirubin Urine UA NEGATIVE (NEGATIVE); Color Urine UA YELLOW; Glucose Urine UA NEGATIVE (Negative); Ketones Urine UA NEGATIVE (NEGATIVE); Leukocyte Esterase Urine UA NEGATIVE (NEGATIVE); Nitrite Urine UA NEGATIVE (Negative); Occult Blood Urine UA NEGATIVE (Negative); Protein Urine UA NEGATIVE (Negative); Specific Gravity Urine UA 1.010 (1.000-1.035); Urobilinogen Urine UA 0.2 E.U./dL (0.2); pH Urine UA 6.5 (4.5-8.0)
[2025-02-04 13:19] LABS: Culture Indicated Urine Cult Not Indicated
--- NOTE | 2025-02-04 13:29 | OT.IPNOTE ---
Pt reclined in bed with RT present on entrance of OT. Pt reports that it's been a morning and declines OT tx at this time. Pt says he needs to rest. OT will re-attempt tomorrow.
--- NOTE | 2025-02-04 13:31 | PT-IP ANOTE ---
PT checks on pt in a.m. and in p.m. He is unavailable on first check and reports he is too tired to try therapy and getting up in the afternoon after being up in the a.m. Con't PT efforts next date.
--- NOTE | 2025-02-04 18:18 | PC.NURSE ---
Day shift: Pt A&Ox4, c/o abd discomfort and difficulty urinating. Pt attempted to urinate with urinal at bedside, dangling and standing. Only able to void 25mL-75mL each time. Bladder scanner showed >600 mL, provider notified. New orders received. Catheter placed with difficulty. Pt reports improved symptoms. Resting in bed. 2L NC 94-95%. Vitals WDL. Care ongoing.
[2025-02-04] MEDS: FLUTICASONE 120 SPRAY/16 GM SPRAY.SUSP NASAL (20:21)
[2025-02-05] VITALS (56 sets, daily range): BP systolic 93–108; BP diastolic 57–83; PULSE 67–101; RESP 10–33; TEMP 36.3–36.8; O2SAT 90–98
[2025-02-05 05:55] LABS: Blood Urea Nitrogen 26 mg/dL (9-20); Calcium 8.6 mg/dL (8.4-10.2); Carbon Dioxide 32 mmol/L (22-32); Chloride 93 mmol/L (98-107); Estimated Glomerular Filt Rate > 60 mL/min (>60); Glucose 111 mg/dL (70-99); HEMOLYSIS < 15 (0-50); Potassium 3.8 mmol/L (3.4-5.1); Sodium 130 mmol/L (137-145)
[2025-02-05] MEDS: ALBUTEROL/IPRATROPIUM 3 ML AMPUL INH ×2 (06:04→13:01)
[2025-02-05] MEDS: BUDESONIDE 0.5 MG/2 ML NEB INH (06:04)
[2025-02-05] MEDS: AZITHROMYCIN 250 MG TABLET PO (08:31)
[2025-02-05] MEDS: OXYBUTYNIN 5 MG TABLET PO ×3 (08:31→20:20)
[2025-02-05] MEDS: FUROSEMIDE 40 MG TABLET PO (08:31)
[2025-02-05] MEDS: ENOXAPARIN 40 MG/0.4 ML SYRINGE SUBCUT (08:32)
[2025-02-05] MEDS: SODIUM CHLORIDE 0.9% FLUSH 10 ML IV ×2 (08:32→20:20)
--- NOTE | 2025-02-05 15:20 | PT.IPTN ---
Current Diagnoses Chronic obstructive pulmonary disease with (acute) exacerbation (02/01/25) Physical Therapy Treatment Note M2 PT-IP Current Condition Start: 02/01/25 17:24 Freq: NEEDED Status: Active Protocol: Document 02/01/25 16:35 AB (Rec: 02/01/25 17:44 AB [id number]) Physical Therapy Current Condition Current Condition Evaluation Date 02/01/25 Treatment Diagnosis COPD exacerbation; CHF; difficulty in walking Onset Date 02/01/25 M3 PT-IP Subjective Start: 02/01/25 17:24 Freq: NEEDED Status: Active Protocol: Document 02/05/25 15:20 AB (Rec: 02/05/25 17:59 AB [id number]) Subjective Physical Therapy Visit Type Type Treatment Note Visit Start Time 15:20 Visit Stop Time 15:35 Number of LAWYER PROBATE Visits 0 Physical Therapy Visit Comments Patient Comments agreeable to do PT M4 PT-IP Mobility and Gait Start: 02/01/25 17:24 Freq: NEEDED Status: Active Protocol: Document 02/05/25 15:20 AB (Rec: 02/05/25 17:59 AB [id number]) PT-Transfer Assessment Sit to and From Stand Sit to and from Contact Guard Assistance,1 Person Assistance,Use of Stand Upper Extremities Equipment Transfer Assistive Gait Belt,Front Wheeled Walker Device Orthotic/Prosthetic No Devices or Brace: Comments Mobility Comments pt sitting on EOB and agreeable to do PT. sit to stand CGA and ambulated in room using FWW CGA ~ 50 ft. O2 sat maintained at 94% with 1.5L/min. pt sat on EOB. wants to just sit on EOB. call light and table placed within reach. Gait Assessment Gait Gait Assistance Contact Guard Assist Required: Distance (Feet) 50 Able to Maintain Yes Weight Bearing Status During Gait Assistive Devices Assistive Device Gait Belt,Front Wheeled Walker Orthotic/Prosthetic No Devices or Brace: Gait Deviations General Gait Pattern Decreased Stride Length,Decreased Feet Clearance Factors Limiting Gait Function Factors Limiting Decreased Activity Tolerance,Decreased Strength,Poor Gait Function Balance,Poor Safety Awareness M5 PT-IP Objective Assessments Start: 02/01/25 17:24 Freq: NEEDED Status: Active Protocol: Document 02/01/25 16:35 AB (Rec: 02/01/25 17:44 AB [id number]) Orientation Orientation/Cognition Level of Alertness Alert Orientation Name,Place,Situation Language Function No Deficits Noted Ability Safety Awareness Decreased Safety Awareness Gross Range of Motion Lower Extremity ROM Assessment Within Functional Limits Strength Lower Extremity Strength Hip 4-/5 Knee 4-/5 Sensation Assessment Sensation Gross Sensation Right UE Impaired,Left UE Impaired,Right LE Impaired, Left LE Impaired Sensation Numbness Description Comments Sensation Comments stated chronic numbness on B feet and B hands Muscle Tone Muscle Tone WNL Yes M6 PT-IP Treatment Start: 02/01/25 17:24 Freq: NEEDED Status: Active Protocol: Document 02/05/25 15:20 AB (Rec: 02/05/25 17:59 AB [id number]) Physical Therapy Treatment Education Education Provided Safety M7 PT-IP Assessment and Plan Start: 02/01/25 17:24 Freq: NEEDED Status: Active Protocol: Document 02/05/25 15:20 AB (Rec: 02/05/25 17:59 AB [id number]) PT Summary Assessment and Plan Potential Rehabilitation Fair Potential Summary Impairments Pain,ROM,Strength,Balance,Coordination,Sensation,Tone, Cognition,Bed Mobility,Transfers,Gait,Activity Tolerance Progress Towards Slow Progress due to Medical Issues,Slow Progress due Goals to Activity Tolerance Assessment Summary pt progressing with mobility and able to ambulate ~ 50 ft using FWW CGA. pt lives alone and will still need assistance at home. pt will benefit from SNF rehab. Goals Bed Mobility Goal Independent Transfer Goal Standby Assistance,Front Wheeled Walker Gait Goal Standby Assistance,Front Wheel Walker Gait Distance 50 Other Goals improve transfers, ambulation using LRAD 150 ft mod I up/down 3 steps L rail ascending SBA Days to Meet Goals 10 Frequency of Treatment Frequency Of Once a Day Treatment Treatment Plan Physical Therapy Bed Mobility Training,Transfer Training,Gait Training, Treatment Plan Therapeutic Exercise,Balance Retraining,Discharge Planning,Hot or Cold Pack,Neuromuscular Re-ed, Coordination Retraining Precautions Other Precautions falls Recommendations To Nursing Amount of Assist 1 Person Assist Needed Discharge Recommendations PT Discharge SNF Rehab Recommendations Transportation Needs Wheelchair/Cabulance at Discharge - PT assist 1
--- NOTE | 2025-02-05 16:43 | OT.IP.TRT ---
Current Diagnoses Chronic obstructive pulmonary disease with (acute) exacerbation (02/01/25) Occupational Therapy Treatment Note M2 OT-IP Current Condition Start: 02/01/25 15:08 Freq: Status: Active Protocol: Document 02/01/25 15:09 [facility] (Rec: 02/01/25 15:26 [facility] Desktop) Occupational Therapy Current Condition Current Condition Evaluation Date 02/01/25 Treatment Diagnosis COPD exacerbation Diagnosis Onset Date 02/01/25 M3 OT- IP Subjective and Pain Start: 02/01/25 15:08 Freq: Status: Active Protocol: Document 02/05/25 16:31 GERA (Rec: 02/05/25 16:43 [facility] Desktop) OT- Subjective Occupational Therapy Visit Type Type Treatment Note Visit Start Time 14:15 Visit Stop Time 14:55 Notes Pt sitting EOB on entrance of OT. Pt left sitting EOB at end of tx with all needs met and in reach. Occupational Therapy Visit Comments Patient Comments Pt agreed to participate in skilled OT services. Patient/Caregiver TO get better Goals OT Pain Assessment Pain When Pain Assessed At Rest Pain Present Pain Present Pain Reported Location Chest Intensity 2 Scale Used Numeric (0 - 10) M4 OT- IP ADL's Start: 02/01/25 15:08 Freq: Status: Active Protocol: Document 02/05/25 16:31 [id number] (Rec: 02/05/25 16:43 [facility] Desktop) OT [id number] Comments OT Self-Feeding not observed Comments OT ADL-Grooming Comments OT Grooming Comments not observed OT ADL-Oral Care Comments Oral Care Comments not observed OT ADL-Dressing General Eval Lower Body Dressing Contact Guard Assistance Ability Areas Needing Socks Assistance Comments OT Dressing Comments OT educated pt on use of LB AE (planer tailer and sock aid) for LB dressing. Pt practiced doffing and donning his socks with CGA and vcs to perform after demonstration. OT also demonstrated use of planer tailer for underpants and pants but due to catheter pt declined attempting to don LB clothing at this time. OT ADL-Toileting General Evaluation Toileting Ability Total Assistance Areas Needing Empty Catheter or Colostomy Assistance Comments OT Toileting Pt has external cath. Comments OT ADL-Bathing Comments OT Bathing Comments not observed M5 OT- IP IADL's Start: 02/01/25 15:08 Freq: Status: Active Protocol: Document 02/01/25 15:09 [facility] (Rec: 02/01/25 15:26 [facility] Desktop) OT-Instrumental Activities of Daily Living Deficits IADL Deficits Deficits Identified Home Safety Awareness Awareness of Need Good Awareness for Assistance at Home Home Safety Comments Pt aware not able to take care of himself as very SOB and decreased activity tolerance. Meal Preparation Meal Preparation At this time pt would need assist. Comments Assistant Program Director Assistant Program Director Pt would benefit from assist. Comments M6 OT- IP Functional Cognition Start: 02/01/25 15:08 Freq: Status: Active Protocol: Document 02/01/25 15:09 [facility] (Rec: 02/01/25 15:26 [facility] Desktop) Cognitive Factors Limiting Selfcare Function Cognitive Ability Level of Alertness Alert Patient Orientation Name,Age,Birthday,Month,Date,Year,Day of Week,Place, Situation Attention Span Capable of Focused Attention,Capable of Sustained Ability Attention Ability to Follow Able to Follow One Step Commands Commands Cognitive Comments Cognitive Assessment Pt able to follow commands for mobility needs. Comments OT- Vision and Hearing OT- Hearing Assessment OT- Hearing WFL Assessment OT- Vision Assessment Visual Acuity Glasses All The Time Visual Attentiveness WFL Occular Pursuits WFL Visual Convergence WFL Visual Scott WFL Diplopia Absent M7 OT- IP Mobility and Balance Start: 02/01/25 15:08 Freq: Status: Active Protocol: Document 02/05/25 16:31 [email or web address] 02/05/25 16:[facility] OT-Transfer Assessment Sit to and From Stand Sit to and from Contact Guard Assistance,1 Person Assistance,Use of Stand Upper Extremities Comments Mobility Comments BP while EOB 102/68. Pt required CGA for sit>stand. Pt asked to remain standing. OT suggested amb to sink for grooming/hygiene, but pt declined. Pt was able to stand for ~10 minutes demonstrating increased activity tolerance. Pt without SOB while standing. While standing OT began educating pt on EC techniques. This conversation continued when pt returned to sitting and was able to look at provided handout. OT offered suggestions or his personal home and energy needs. OT- Balance Assessment Sitting Balance and Reactions Static Sitting Normal Balance Ability Dynamic Sitting Good Balance Ability Standing Balance and Reactions Static Standing Fair Balance Ability M8 OT- IP Objective Assessments Start: 02/01/25 15:08 Freq: Status: Active Protocol: Document 02/01/25 15:09 [facility] (Rec: 02/01/25 15:26 [facility] Desktop) OT Gross Range of Motion Upper Extremity Range of Motion Assessment Within Functional Limits OT Strength Upper Extremity Strength Assessment Within Functional Limits Comments Strength Comments BUE 4/5 to 5/5 OT- Coordination Assessment Upper Extremity Finger to Nose Test Within Functional Limits M9 OT- IP Assessment and Plan Start: 02/01/25 15:08 Freq: Status: Active Protocol: Document 02/05/25 16:31 [facility] (Rec: 02/05/25 16:43 [facility] Desktop) OT Summary Assessment and Plan Potential Rehabilitation Good Potential Analytic Complexity Moderate at Evaluation Summary OT Impairments Pain,Balance,Functional Mobility,Grooming,Dressing, Toileting,Bathing,Toilet Transfers,Shower Transfers, Activity Tolerance Progress Towards Slow Progress due to Pain,Slow Progress due to Medical Goals Issues,Slow Progress due to Activity Tolerance Assessment Summary Pt demonstrated improved activity tolerance with standing today. This is important for progressing with BADL and IADL safety. Pt was ed on use of AE for LB dressing and on EC techniques. Pt would benefit from review of both. Pt was able to don/doff socks with CGA using AE. Pt declined don/doff of underpants at this time. Pt would benefit from SNF to address BADL, IADL, activity intolerance, and to promote return towards PLOF. Pt continues to be appropriate for skilled OT services. Cont per POC. Goals Self-Feeding Goal Independent Grooming Goal Independent Dressing Goal Independent Toileting Goal Independent Bathing Goal Independent Toilet Transfer Goal Independent Shower Transfer Goal Independent Patient/Caregiver Demonstrate Energy Conservation and Pacing Education Goal Days to Meet Goals 15 Frequency of Treatment Other frequency 5x/week Treatment Plan OT Treatment Plan ADL Training,Functional Mobility,Patient/Family Education,Discharge Planning Discharge Recommendations OT Discharge SNF Rehab Recommendations Transportation Needs Wheelchair/Cabulance at Discharge
--- NOTE | 2025-02-05 18:59 | PM.PN.1 ---
Subjective Subjective Date Patient Seen: 02/05/25 Interval history: Chief complaint: Severe dyspnea hypoxic respiratory failure secondary to COPD and acute on chronic congestive heart failure History of present illness: 02/01: 64-year-old male with past medical history of COPD not oxygen dependent, active tobacco smoking 1 pack/day and hypertension presents with complaint of shortness of breath. Per the patient's report, over the last few days, the patient noticed increased dry cough and shortness of breath. The patient admits she has some orthopnea. The patient states that he does have some chronic lower extreme edema but is unable to tell if it is worsening or not. The patient otherwise denies any chest pain, fever, chills, nausea, vomiting, diarrhea or syncope. Patient however admits to have some wheezing. In the emergency room, the patient was hemodynamically stable. However the patient did require 2 L of oxygen per nasal cannula. Patient labs shows sodium 130 BNP of 6370 and troponin negative x 2. EKG does not show any sign of acute ischemia. Chest x-ray shows mild bilateral effusion with increased vascularity suggesting edema. The patient was given IV Lasix 40 mg, Solu-Medrol was and DuoNebs. Findings in the emergency department significant for echocardiogram: The left ventricle is moderate-severely dilated. The ejection fraction is estimated to be 15-20%. There is severe global hypokinesis of the left ventricle. Diastolic function is indeterminate. The left atrium is severely dilated. There is severe mitral regurgitation. Pulmonary artery pressures cannot be estimated because of the lack of a measurable TR jet velocity but the IVC suggests a CVP of around 3 mmHg. There is a trivial pericardial effusion noted. Left pleural effusion. Hospital course: 02/01: Improved shortness for breath still requiring nasal cannula has not been out of bed yet 02/02-02/03: Over the weekend patient had multiple episodes of increasing dyspnea shortness for breath and hypoxia transferred to the intensive care unit and intermittently required mechanical assistance with BiPAP. Patient had 2nd run of SVT and patient was initiated on metoprolol oral 02/04: Patient is having continued difficulty with dyspnea and intermittently requiring BiPAP this morning was noted to have urinary urgency bladder scan demonstrated 600 mL residual patient is unable to void a coude' catheter was placed 02/05: Patient did require BiPAP for about an hour during the night which is less than the previous night no more urge urinary urgency and urine output has improved since urinary catheter was placed patient is reporting some dyspnea with activity Review of systems: No fevers or chills No chest pains or palpitations No nausea vomiting diarrhea No paresthesia paresis No muscle weakness Physical exam: Very pleasant elderly gentleman HEENT unremarkable Heart sounds distant Lungs are diminished breath sounds at bases Extremities no edema Alert and oriented Neuro nonfocal Objective laboratory and imaging please see the bottom of the note: Assessment and plan: Acute respiratory failure with hypoxia secondary to acute on chronic systolic congestive heart failure EF 15-20% with severe mitral regurgitation and acute exacerbation of COPD Intermittent BiPAP as still being required but less dependence in the past 24 hours Brisk diuresis monitoring BUN creatinine intake and output 1800 cc fluid restriction and we will continue Bladder outlet obstruction may have been impeding diuresis hopefully with Eaton catheter placement for both acute obstruction and accurate measurement of in and out take Systemic steroids on prednisone taper Supplemental oxygen Completed antibiotic Recurrent pulmonary nodules ongoing since 1997 followed at the [facility]: he has known pulmonary nodules 1 of which was noted to be spiculated that had grown between December 2023 and June of 2024. It was recommended he undergo a PET-CT scan. However he reported he missed 6 appointments and they would no longer allow the PET-CT to be scheduled in [facility]. Is now being seen at the [facility] in [place]. Tells me he had a CT scan done on the of last month and is now awaiting further referrals. It is unclear if he is being referred for a bronchoscopy or additional imaging. Recent CT scan report faxed from the [facility] system: Impression: Multiple new pulmonary nodular masslike consolidations predominating in the upper lungs, largest nidus right upper lobe has some air bronchograms and central cavitation measuring at least 15 x 31 mm. Previously new partially cavitary upper lobe nodule has slightly decreased in size and cavitation has resolved. Many of the pre-existing nodules are otherwise stable in size particularly those which are partially calcified. As before findings suggest infectious/inflammatory etiology (granulomatous disease) recommend follow up CT of the chest without contrast in 3 months DVT prophylaxis Lovenox Code status Full code blue 35 minutes were involved in managing patient's admission including [id number] patient evaluation review of laboratory and imaging findings. Exam Vital Signs (past 8 hours): - 02/05/25 11:00 02/05/25 11:30 02/05/25 12:00 Pulse Rate 74 80 80 Respiratory Rate 17 15 23 Blood Pressure Pulse Oximetry 96 96 Oxygen Delivery Method Oxygen Flow Rate Fraction of Inspired Oxygen 02/05/25 12:00 02/05/25 12:30 02/05/25 13:00 Pulse Rate 82 97 H Respiratory Rate 22 22 Blood Pressure 99/61 Pulse Oximetry 96 96 Oxygen Delivery Method Oxygen Flow Rate Fraction of Inspired Oxygen 02/05/25 13:03 02/05/25 13:30 02/05/25 14:00 Pulse Rate 86 94 H Respiratory Rate 24 24 Blood Pressure 93/57 L Pulse Oximetry 95 95 Oxygen Delivery Method Nasal Cannula Oxygen Flow Rate 1 Fraction of Inspired Oxygen 24 02/05/25 14:00 02/05/25 14:21 02/05/25 14:21 Pulse Rate 87 93 H Respiratory Rate 21 23 Blood Pressure 102/68 Pulse Oximetry 96 Oxygen Delivery Method Oxygen Flow Rate Fraction of Inspired Oxygen 02/05/25 14:30 02/05/25 15:00 02/05/25 15:30 Pulse Rate 101 H 98 H 99 H Respiratory Rate 32 H 24 Blood Pressure Pulse Oximetry 91 96 94 Oxygen Delivery Method Oxygen Flow Rate Fraction of Inspired Oxygen 02/05/25 15:49 02/05/25 16:00 02/05/25 16:00 Pulse Rate 87 Respiratory Rate 20 Blood Pressure 108/70 Pulse Oximetry 92 94 Oxygen Delivery Method Room Air Oxygen Flow Rate Fraction of Inspired Oxygen 21 Fraction of Inspired Oxygen 21 SaO2/FiO2 Ratio 438 Oxygen Delivery Method Room Air Oxygen Flow Rate 1 Objective Labs 02/04/25 04:19 02/05/25 04:18 Labs: Laboratory Results - last 24 hr 02/05/25 04:18 Sodium 130 L Potassium 3.8 Chloride 93 L Carbon Dioxide 32 BUN 26 H Creatinine 0.75 Estimated GFR > 60 BUN/Creatinine Ratio 34.7 H Glucose 111 H Calcium 8.6 PFSH Social History household members: none Smoking Status: Current every day smoker Assessment & Plan Time-Based Coding :: [TOTAL MINUTES] spent with patient and on the chart (including review of chart, obtaining history, exam, reviewing outside data, placing orders, documenting exam and treatment plan, and counseling patient) on [DATE].
[2025-02-06] VITALS (58 sets, daily range): BP systolic 94–188; BP diastolic 51–79; PULSE 64–105; RESP 14–34; TEMP 36.3–36.6; O2SAT 89–98
[2025-02-06 05:51] LABS: Add Manual Diff / Slide Review NO; Hematocrit 33.7 % (41-53); Hemoglobin 11.6 g/dL (13.5-17.5); Lymphocytes Absolute Auto 2300 /uL (1100-4500); Mean Corpuscular HGB Conc 34.5 % (30-36); Mean Corpuscular Hemoglobin 34.7 PG (26-34); Mean Corpuscular Volume 100.4 fL (80-100); Platelet Count 189 X10^3/uL (150-400)
[2025-02-06 06:02] LABS: Blood Urea Nitrogen 24 mg/dL (9-20); Calcium 8.6 mg/dL (8.4-10.2); Carbon Dioxide 32 mmol/L (22-32); Chloride 94 mmol/L (98-107); Estimated Glomerular Filt Rate > 60 mL/min (>60); Glucose 90 mg/dL (70-99); HEMOLYSIS < 15 (0-50); Potassium 3.6 mmol/L (3.4-5.1); Sodium 130 mmol/L (137-145)
[2025-02-06] MEDS: BUDESONIDE 0.5 MG/2 ML NEB INH ×2 (08:50→18:59)
[2025-02-06] MEDS: ALBUTEROL/IPRATROPIUM 3 ML AMPUL INH ×3 (08:51→18:59)
[2025-02-06] MEDS: METOPROLOL ER 25 MG TABLET PO (09:47)
[2025-02-06] MEDS: FUROSEMIDE 40 MG TABLET PO (09:48)
[2025-02-06] MEDS: OXYBUTYNIN 5 MG TABLET PO ×3 (09:48→20:37)
[2025-02-06] MEDS: ENOXAPARIN 40 MG/0.4 ML SYRINGE SUBCUT (09:49)
[2025-02-06] MEDS: FLUTICASONE 120 SPRAY/16 GM SPRAY.SUSP NASAL (09:49)
[2025-02-06] MEDS: SODIUM CHLORIDE 0.9% FLUSH 10 ML IV ×2 (10:09→20:38)
--- NOTE | 2025-02-06 13:20 | OT.IP.TRT ---
Current Diagnoses Chronic obstructive pulmonary disease with (acute) exacerbation (02/01/25) Occupational Therapy Treatment Note M2 OT-IP Current Condition Start: 02/01/25 15:08 Freq: Status: Active Protocol: Document 02/01/25 15:09 [facility] (Rec: 02/01/25 15:26 [facility] Desktop) Occupational Therapy Current Condition Current Condition Evaluation Date 02/01/25 Treatment Diagnosis COPD exacerbation Diagnosis Onset Date 02/01/25 M3 OT- IP Subjective and Pain Start: 02/01/25 15:08 Freq: Status: Active Protocol: Document 02/06/25 13:26 [facility] (Rec: 02/06/25 13:33 [facility] Desktop) OT- Subjective Occupational Therapy Visit Type Type Treatment Note Visit Start Time 13:10 Visit Stop Time 13:20 Occupational Therapy Visit Comments Patient Comments Pt still eating and not wanting to shower at this time but agreed to talk about OT equipment needs. Patient/Caregiver TO go home. Goals OT Pain Assessment Pain When Pain Assessed At Rest Pain Present Pain Present Denied Pain M4 OT- IP ADL's Start: 02/01/25 15:08 Freq: Status: Active Protocol: Document 02/06/25 13:26 [facility] (Rec: 02/06/25 13:33 [facility] Desktop) OT [id number] General Evaluation Self-Feeding Ability Independent OT ADL-Dressing Comments OT Dressing Comments Spoke of LB dressing equipment and gave pt a list of places to be able to get equipment if needed or [employer]. OT ADL-Toileting Comments OT Toileting Pt will benefit from urinal at home and use of a BSC to Comments increased ease to get up and down form the toilet versus grab the side of the tub to get up. OT ADL-Bathing Comments OT Bathing Comments Pt states his tub/shower is not usable and to be or in the process of being renovated. Suggested rather than doing renovated having the same tub/shower- may want to consider a walk in shower. M5 OT- IP IADL's Start: 02/01/25 15:08 Freq: Status: Active Protocol: Document 02/01/25 15:09 [facility] (Rec: 02/01/25 15:26 [facility] Desktop) OT-Instrumental Activities of Daily Living Deficits IADL Deficits Deficits Identified Home Safety Awareness Awareness of Need Good Awareness for Assistance at Home Home Safety Comments Pt aware not able to take care of himself as very SOB and decreased activity tolerance. Meal Preparation Meal Preparation At this time pt would need assist. Comments [employer] Pt would benefit from assist. Comments M6 OT- IP Functional Cognition Start: 02/01/25 15:08 Freq: Status: Active Protocol: Document 02/06/25 13:26 [facility] (Rec: 02/06/25 13:33 [facility] Desktop) Cognitive Factors Limiting Selfcare Function Cognitive Comments Cognitive Assessment Pt insistent that he will be fine at home. Suggested pt Comments get a fww and pt states no room and will have to measure his place to see if it would fit. M7 OT- IP Mobility and Balance Start: 02/01/25 15:08 Freq: Status: Active Protocol: Document 02/05/25 16:31 [facility] (Rec: 02/05/25 16:43 [facility] Desktop) OT-Transfer Assessment Sit to and From Stand Sit to and from Contact Guard Assistance,1 Person Assistance,Use of Stand Upper Extremities Comments Mobility Comments BP while EOB 102/68. Pt required CGA for sit>stand. Pt asked to remain standing. OT suggested amb to sink for grooming/hygiene, but pt declined. Pt was able to stand for ~10 minutes demonstrating increased activity tolerance. Pt without SOB while standing. While standing OT began educating pt on EC techniques. This conversation continued when pt returned to sitting and was able to look at provided handout. OT offered suggestions or his personal home and energy needs. OT- Balance Assessment Sitting Balance and Reactions Static Sitting Normal Balance Ability Dynamic Sitting Good Balance Ability Standing Balance and Reactions Static Standing Fair Balance Ability M8 OT- IP Objective Assessments Start: 02/01/25 15:08 Freq: Status: Active Protocol: Document 02/01/25 15:09 [facility] (Rec: 02/01/25 15:26 [facility] Desktop) OT Gross Range of Motion Upper Extremity Range of Motion Assessment Within Functional Limits OT Strength Upper Extremity Strength Assessment Within Functional Limits Comments Strength Comments BUE 4/5 to 5/5 OT- Coordination Assessment Upper Extremity Finger to Nose Test Within Functional Limits M9 OT- IP Assessment and Plan Start: 02/01/25 15:08 Freq: Status: Active Protocol: Document 02/06/25 13:26 [facility] (Rec: 02/06/25 13:33 [facility] Desktop) OT Summary Assessment and Plan Potential Rehabilitation Good Potential Analytic Complexity Moderate at Evaluation Summary OT Impairments Pain,Balance,Functional Mobility,Grooming,Dressing, Toileting,Bathing,Toilet Transfers,Shower Transfers, Activity Tolerance Progress Towards Progressing Toward Goals,Slow Progress due to Activity Goals Tolerance Assessment Summary Pt hesitant to get a FWW and insists that he will just go home and figure it out and measure to see what will work for him. If pt having to go home best for pt to have home health and assist. At this time still best to do short skilled rehab. Goals Self-Feeding Goal Independent Grooming Goal Independent Dressing Goal Independent Toileting Goal Independent Bathing Goal Independent Toilet Transfer Goal Independent Shower Transfer Goal Independent Patient/Caregiver Demonstrate Energy Conservation and Pacing Education Goal Days to Meet Goals 15 Frequency of Treatment Other frequency 5x/week Treatment Plan OT Treatment Plan ADL Training,Functional Mobility,Patient/Family Education,Discharge Planning Other Treatment shower Recommendations and Next Treatment Focus Discharge Recommendations OT Discharge SNF Rehab Recommendations Transportation Needs Wheelchair/Cabulance at Discharge
--- NOTE | 2025-02-06 15:20 | PT.IPTN ---
Current Diagnoses Chronic obstructive pulmonary disease with (acute) exacerbation (02/01/25) Physical Therapy Treatment Note M2 PT-IP Current Condition Start: 02/01/25 17:24 Freq: NEEDED Status: Active Protocol: Document 02/01/25 16:35 [facility] (Rec: 02/01/25 17:44 [facility] [id number]) Physical Therapy Current Condition Current Condition Evaluation Date 02/01/25 Treatment Diagnosis COPD exacerbation; CHF; difficulty in walking Onset Date 02/01/25 M3 PT-IP Subjective Start: 02/01/25 17:24 Freq: NEEDED Status: Active Protocol: Document 02/06/25 15:20 [facility] (Rec: 02/06/25 16:48 [facility] [id number]) Subjective Physical Therapy Visit Type Type Treatment Note Visit Start Time 15:20 Visit Stop Time 15:50 Number of [employer] Visits 0 Physical Therapy Visit Comments Patient Comments agreeable to do PT M4 PT-IP Mobility and Gait Start: 02/01/25 17:24 Freq: NEEDED Status: Active Protocol: Document 02/06/25 15:20 [facility] (Rec: 02/06/25 16:48 [facility] [id number]) PT-Bed Mobility Assessment Supine to Sit Supine to Sit Independent PT-Transfer Assessment Sit to and From Stand Sit to and from Standby Assistance,1 Person Assistance,Use of Upper Stand Extremities Equipment Transfer Assistive Gait Belt,4 Wheeled Walker Device Orthotic/Prosthetic No Devices or Brace: Transfers Transfer Destination Chair Transfer Technique ambulated Transfer Ability Level of Assist Standby Assistance,1 Person Assistance,Use of Upper Extremities Comments Mobility Comments pt in bed and agreed to do PT. BP: 102/64 O2 sat at RA : 94% KS: 77. completed supine to sit mod I with HOB elevated. educated on use of 4WW. sit to stand SBA and pt ambulated using 4WW in room ~ 40 ft SBA. slow paced gait with standing rest breaks. O2 sat: 88-89% after ambulation but with good recover to 90-91% in 4-5 sec rest. cues for PLB. pt completed up/down step stool using foot board as rail SBA. completed x 2 sets. pt ambulated to the chair using 4WW SBA. positioned pt on the chair. call light and table placed within reach . Gait Assessment Gait Gait Assistance Standby Assistance,1 Person Assist Required: Distance (Feet) 40 Able to Maintain Yes Weight Bearing Status During Gait Assistive Devices Assistive Device Gait Belt,4 Wheeled Walker Orthotic/Prosthetic No Devices or Brace: Gait Deviations General Gait Pattern Decreased Stride Length,Decreased Feet Clearance Factors Limiting Gait Function Factors Limiting Decreased Activity Tolerance,Decreased Strength,Poor Gait Function Balance,Poor Safety Awareness,Respiratory Distress Stair Climbing Assessment Evaluation Level of Assist On Standby Assistance Stairs Devices Stair Climbing Left Railing,Right Railing Assistive Devices Technique/Endurance Stair Climbing Ascend and Descend Direction Stair Climbing Step to Step Technique Number of Steps 1 Climbed Stair Climbing Set # 2 Repetitions (reps) M5 PT-IP Objective Assessments Start: 02/01/25 17:24 Freq: NEEDED Status: Active Protocol: Document 02/01/25 16:35 [facility] (Rec: 02/01/25 17:44 [facility] [id number]) Orientation Orientation/Cognition Level of Alertness Alert Orientation Name,Place,Situation Language Function No Deficits Noted Ability Safety Awareness Decreased Safety Awareness Gross Range of Motion Lower Extremity ROM Assessment Within Functional Limits Strength Lower Extremity Strength Hip 4-/5 Knee 4-/5 Sensation Assessment Sensation Gross Sensation Right UE Impaired,Left UE Impaired,Right LE Impaired, Left LE Impaired Sensation Numbness Description Comments Sensation Comments stated chronic numbness on B feet and B hands Muscle Tone Muscle Tone WNL Yes M6 PT-IP Treatment Start: 02/01/25 17:24 Freq: NEEDED Status: Active Protocol: Document 02/06/25 15:20 [facility] (Rec: 02/06/25 16:48 [facility] [id number]) Physical Therapy Treatment Education Education Provided Safety M7 PT-IP Assessment and Plan Start: 02/01/25 17:24 Freq: NEEDED Status: Active Protocol: Document 02/06/25 15:20 [facility] (Rec: 02/06/25 16:48 [facility] [id number]) PT Summary Assessment and Plan Potential Rehabilitation Good Potential Summary Impairments Pain,ROM,Strength,Balance,Coordination,Sensation,Tone, Cognition,Bed Mobility,Transfers,Gait,Activity Tolerance Progress Towards Slow Progress due to Activity Tolerance Goals Assessment Summary pt progressing well with mobility and able to ambulate using 4WW ~ 40 ft SBA. O2 sat 88-89% after ambulation at RA. pt lives alone and will need assistance. d/c plan: home with assist and HHPT vs SNF Goals Bed Mobility Goal Independent Transfer Goal Standby Assistance,Front Wheeled Walker Gait Goal Standby Assistance,Front Wheel Walker Gait Distance 50 Other Goals improve transfers, ambulation using LRAD 150 ft mod I up/down 3 steps L rail ascending SBA Days to Meet Goals 10 Frequency of Treatment Frequency Of Once a Day Treatment Treatment Plan Physical Therapy Bed Mobility Training,Transfer Training,Gait Training, Treatment Plan Therapeutic Exercise,Balance Retraining,Discharge Planning,Hot or Cold Pack,Neuromuscular Re-ed, Coordination Retraining Recommendations To Nursing Amount of Assist 1 Person Assist Needed Discharge Recommendations PT Discharge Home with Assistance,Home Health,SNF Rehab,Home vs SNF Recommendations Transportation Needs Private Vehicle,Wheelchair/Cabulance at Discharge - PT assist 1
--- NOTE | 2025-02-06 18:01 | PC.NURSE ---
Pt worked with PT today, OOB to chair. Eaton still intact with good output. Fluid restriction of 1L during day. No BM. Downgraded to acute care. Potential DC tomorrow.
[2025-02-07] VITALS (21 sets, daily range): BP systolic 104–107; BP diastolic 61–65; PULSE 66–112; RESP 15–26; TEMP 36.4; O2SAT 91–95
[2025-02-07 05:23] LABS: Add Manual Diff / Slide Review NO; Hematocrit 33.5 % (41-53); Hemoglobin 11.8 g/dL (13.5-17.5); Lymphocytes Absolute Auto 1800 /uL (1100-4500); Mean Corpuscular HGB Conc 35.2 % (30-36); Mean Corpuscular Hemoglobin 34.7 PG (26-34); Mean Corpuscular Volume 98.7 fL (80-100); Platelet Count 198 X10^3/uL (150-400)
[2025-02-07 05:47] LABS: Blood Urea Nitrogen 25 mg/dL (9-20); Calcium 8.5 mg/dL (8.4-10.2); Carbon Dioxide 31 mmol/L (22-32); Chloride 97 mmol/L (98-107); Estimated Glomerular Filt Rate > 60 mL/min (>60); Glucose 102 mg/dL (70-99); HEMOLYSIS < 15 (0-50); Potassium 3.7 mmol/L (3.4-5.1); Sodium 131 mmol/L (137-145)
[2025-02-07] MEDS: ALBUTEROL/IPRATROPIUM 3 ML AMPUL INH (07:35)
[2025-02-07] MEDS: BUDESONIDE 0.5 MG/2 ML NEB INH (07:35)
--- NOTE | 2025-02-07 07:49 | P.DS_ITS ---
History of Present Illness History of Present Illness Date Patient Seen: 02/07/25 Chief complaint: difficulty breathing hx copd Narrative: Karthikeyan MR#: [id number] : 1960 Acct:[id number] Chief complaint: Severe dyspnea hypoxic respiratory failure secondary to COPD and acute on chronic congestive heart failure History of present illness: 02/01: 64-year-old male with past medical history of COPD not oxygen dependent, active tobacco smoking 1 pack/day and hypertension presents with complaint of shortness of breath. Per the patient's report, over the last few days, the patient noticed increased dry cough and shortness of breath. The patient admits she has some orthopnea. The patient states that he does have some chronic lower extreme edema but is unable to tell if it is worsening or not. The patient otherwise denies any chest pain, fever, chills, nausea, vomiting, diarrhea or syncope. Patient however admits to have some wheezing. In the emergency room, the patient was hemodynamically stable. However the patient did require 2 L of oxygen per nasal cannula. Patient labs shows sodium 130 BNP of 6370 and troponin negative x 2. EKG does not show any sign of acute ischemia. Chest x-ray shows mild bilateral effusion with increased vascularity suggesting edema. The patient was given IV Lasix 40 mg, Solu-Medrol was and DuoNebs. Findings in the emergency department significant for echocardiogram: The left ventricle is moderate-severely dilated. The ejection fraction is estimated to be 15-20%. There is severe global hypokinesis of the left ventricle. Diastolic function is indeterminate. The left atrium is severely dilated. There is severe mitral regurgitation. Pulmonary artery pressures cannot be estimated because of the lack of a measurable TR jet velocity but the IVC suggests a CVP of around 3 mmHg. There is a trivial pericardial effusion noted. Left pleural effusion. Hospital course: 02/01: Improved shortness for breath still requiring nasal cannula has not been out of bed yet 02/02-02/03: Over the weekend patient had multiple episodes of increasing dyspnea shortness for breath and hypoxia transferred to the intensive care unit and intermittently required mechanical assistance with BiPAP. Patient had 2nd run of SVT and patient was initiated on metoprolol oral 02/04: Patient is having continued difficulty with dyspnea and intermittently requiring BiPAP this morning was noted to have urinary urgency bladder scan demonstrated 600 mL residual patient is unable to void a coude' catheter was placed 02/05: Patient did require BiPAP for about an hour during the night which is less than the previous night no more urge urinary urgency and urine output has improved since urinary catheter was placed patient is reporting some dyspnea with activity 02/07: Discharge to home Review of systems: No fevers or chills No chest pains or palpitations No nausea vomiting diarrhea No paresthesia paresis No muscle weakness Physical exam: Very pleasant elderly gentleman HEENT unremarkable Heart sounds distant Lungs are diminished breath sounds at bases Extremities no edema Alert and oriented Neuro nonfocal Objective laboratory and imaging please see the bottom of the note: Assessment and plan: Acute respiratory failure with hypoxia secondary to acute on chronic systolic congestive heart failure EF 15-20% with severe mitral regurgitation and acute exacerbation of COPD * Saturating on room air now * Brisk diuresis monitoring BUN creatinine intake and output 1800 cc fluid restriction and we will continue * Bladder outlet obstruction may have been impeding diuresis hopefully with Eaton catheter placement for both acute obstruction and accurate measurement of in and out take now removed * Systemic steroids on prednisone taper * Supplemental oxygen * Completed antibiotic Recurrent pulmonary nodules ongoing since 1997 followed at the [facility]: * he has known pulmonary nodules 1 of which was noted to be spiculated that had grown between December 2023 and June of 2024. It was recommended he undergo a PET-CT scan. However he reported he missed 6 appointments and they would no longer allow the PET-CT to be scheduled in [place]. Is now being seen at the [facility] in [place]. Tells me he had a CT scan done on the of last and is now awaiting further referrals. It is unclear if he is being referred for a bronchoscopy or additional imaging. * Recent CT scan report faxed from the [facility] system: Impression: * Multiple new pulmonary nodular masslike consolidations predominating in the upper lungs, largest nidus right upper lobe has some air bronchograms and central cavitation measuring at least 15 x 31 mm. Previously new partially cavitary upper lobe nodule has slightly decreased in size and cavitation has resolved. Many of the pre-existing nodules are otherwise stable in size particularly those which are partially calcified.As before findings suggest infectious/inflammatory etiology (granulomatous disease) recommend follow up CT of the chest without contrast in 3 months DVT prophylaxis Lovenox Code status * Full code blue 35 minutes were involved in managing patient's admission including [id number] patient evaluation review of laboratory and imaging findings. Discharge Providers Provider Date of admission: 02/01/25 00:00 Discharge Date: 02/07/25 Primary care physician: ANNABELLE Marinelli Consults: 02/01/25 12:07 Consult to Physical Therapy Evaluate & Treat Comment: Physician Instructions: Evaluate and Treat 02/01/25 12:08 Consult to Occupational Therapy Evaluate & Treat Comment: Physician Instructions: Evaluate and treat Discharge provider: Avtar Mayo MD Exam Vital Signs (past 8 hours): - 02/07/25 00:00 02/07/25 00:30 02/07/25 01:00 Pulse Rate 80 81 78 Respiratory Rate 19 21 20 Blood Pressure Pulse Oximetry Oxygen Delivery Method Oxygen Flow Rate Fraction of Inspired Oxygen 02/07/25 01:30 02/07/25 02:00 02/07/25 02:30 Pulse Rate 84 84 76 Respiratory Rate 18 16 17 Blood Pressure Pulse Oximetry Oxygen Delivery Method Oxygen Flow Rate Fraction of Inspired Oxygen 02/07/25 03:00 02/07/25 03:30 02/07/25 04:00 Pulse Rate 77 69 75 Respiratory Rate 18 18 26 H Blood Pressure Pulse Oximetry Oxygen Delivery Method Oxygen Flow Rate Fraction of Inspired Oxygen 02/07/25 04:12 02/07/25 04:12 02/07/25 04:30 Pulse Rate 72 73 Respiratory Rate 21 17 Blood Pressure 107/61 Pulse Oximetry 93 Oxygen Delivery Method Oxygen Flow Rate Fraction of Inspired Oxygen 02/07/25 05:00 02/07/25 05:30 02/07/25 06:00 Pulse Rate 66 74 78 Respiratory Rate 17 19 15 Blood Pressure Pulse Oximetry Oxygen Delivery Method Oxygen Flow Rate Fraction of Inspired Oxygen 02/07/25 06:30 02/07/25 07:35 Pulse Rate 80 79 Respiratory Rate 26 H 16 Blood Pressure Pulse Oximetry 95 Oxygen Delivery Method Room Air Oxygen Flow Rate 0 Fraction of Inspired Oxygen 21 Fraction of Inspired Oxygen 21 SaO2/FiO2 Ratio 452 Oxygen Delivery Method Room Air Oxygen Flow Rate 0 Objective Labs 02/07/25 04:04 02/07/25 04:04 Labs: Laboratory Results - last 24 hr 02/07/25 04:04 WBC 6.9 RBC 3.39 L Hgb 11.8 L Hct 33.5 L MCV 98.7 MCH 34.7 H MCHC 35.2 RDW 14.2 Plt Count 198 Neut % (Auto) 62.3 Lymph % (Auto) 25.8 [place] % (Auto) 10.5 Eos % (Auto) 1.2 L Baso % (Auto) 0.2 Neut # (Auto) 4300 Lymph # (Auto) 1800 [place] # (Auto) 700 Eos # (Auto) 100 Baso # (Auto) 0 Sodium 131 L Potassium 3.7 Chloride 97 L Carbon Dioxide 31 BUN 25 H Creatinine 0.76 Estimated GFR > 60 BUN/Creatinine Ratio 32.9 H Glucose 102 H Calcium 8.5 PFSH Social History household members: none Smoking Status: Current every day smoker Discharge Plan Discharge Plan Patient Disposition: Home Discharge orders & Medications Prescriptions: New furosemide 40 mg Tablet 40 mg PO DAILY Qty: 90 0RF ipratropium-albuterol 0.5 mg-3 mg(2.5 mg base)/3 mL Solution For Nebulization 3 ml INH RTQ6HR PRN (Reason: Shortness Of Breath) Qty: 100 0RF budesonide [Pulmicort] 0.5 mg/2 mL Suspension For Nebulization 0.5 mg INH RTBID Qty: 100 0RF metoprolol succinate 25 mg Tablet Extended Release 24 Hr 25 mg PO BID Qty: 90 0RF oxybutynin chloride 5 mg Tablet 5 mg PO TID Qty: 90 0RF prednisone 10 mg tablets,dose pack See Rx Instructions .ROUTE .COMPLEX Qty: 48 0RF Rx Instructions: orally per package directions Continued fluticasone propionate [Flonase Allergy Relief] 50 mcg/actuation spray,suspension 1 spray intranasal DAILY PRN (Reason: nasal congestion) Rx Instructions: administer into each nostril albuterol 90 mcg/actuation aerosol 90 mcg inhalation .Q4hrs PRN (Reason: shortness of breath) fluticasone propion-salmeterol [Advair Diskus] 250-50 mcg/dose blister with device 1 inh inhalation BID Discontinued amlodipine 10 mg tablet 10 mg PO DAILY modafinal 200 mg 200 mg PO DAILY naproxen 500 mg tablet 250 mg PO BID PRN (Reason: pain) Follow up/Referrals: Lexus Dixon ARNP [Primary Care Provider, Nursing] Discharge Health Status Multidrug resistant organism: No MDRO Diet/Activity/Treatments Diet: Diet as Tolerated Skin/Wound/Dressing Care Report to your healthcare provider any signs of infection, such as:: chills, fever, night sweats and increased pain Visit Report/Discharge Packet Instructions: DI for Heart Failure Stand Alone Forms: Congestive Heart Failure, Patient Portal/API, Stroke Signs & Symptoms Discharge Data Primary Care Provider: Lexus Dixon
[2025-02-07] MEDS: FLUTICASONE 120 SPRAY/16 GM SPRAY.SUSP NASAL (08:13)
[2025-02-07] MEDS: ENOXAPARIN 40 MG/0.4 ML SYRINGE SUBCUT (08:14)
[2025-02-07] MEDS: METOPROLOL ER 25 MG TABLET PO (08:14)
[2025-02-07] MEDS: FUROSEMIDE 40 MG TABLET PO (08:15)
[2025-02-07] MEDS: OXYBUTYNIN 5 MG TABLET PO (08:15)
[2025-02-07] MEDS: SODIUM CHLORIDE 0.9% FLUSH 10 ML IV (08:16)
--- NOTE | 2025-02-07 10:05 | PC.NURSE ---
Eaton catheter removed as ordered, pt was able to void 100 mL clear yellow urine, PIV removed, all belongings gathered by patient, pt able to dress without assistance, taken to Private vehicle by wheelchair, assisted into private vehicle, no further pt contact at this time
--- NOTE | 2025-02-07 10:54 | CM.DPNOTE ---
DCP note CUSTOMER DEVELOPMENT REPRESENTATIVE reviewed EMR per provider, cleared for home with HH. CUSTOMER DEVELOPMENT REPRESENTATIVE lvm with Virginie at [facility] to cancel SNF referral. CUSTOMER DEVELOPMENT REPRESENTATIVE met with pt in room. confirmed preference for home with [facility]. has a friend that can transport home. denied other needs. CUSTOMER DEVELOPMENT REPRESENTATIVE made referral to [facility]. per nabor Marie acccept pt. f2f/order done. P: dc home with [facility] to follow today. CM team will continue to follow as needed JAMEL Lutz
--- NOTE | 2025-02-07 11:04 | DIET.PN1 ---
Dietary Progress Note Assessment: Pt discharging home today. Met with pt in room to discuss nutrition at home. Provided educ on lower sodium diet, i.e choosing frozen meals <600 mg of sodium/label reading for sodium and choosing low sodium trail mix. Provided educ and handout on higher kcal/higher protein diet. Plan is for pt to resume usual 3 meals per day and trail mix as snack (instead of using as meal replacement) and chocolate Ensure. Ht: 182.88 cm Wt: 56.8 kg BMI: 17.8 Last BM: 02/04/25 (02/04/25 13:15) MNA: 5 Ashwin Score: 22 Diet: 02/01/25 Breakfast Heart Healthy Diet Diet Modifications: 02/05/25 Dinner Fluid Restriction Diet Diet Modifications: Total fluid amount: 1,500 Amount allotted to patient trays: 0 Fluid in addition to trays: [id number] amount: 1,000 [id number] amount: 500 Food Texture: Level 7 - Regular Liquid Consistency: Level 0 - Thin Nutrition Percent Meal Consumed 50% 02/06/25 18:00 Percent Meal Consumed 50% 02/06/25 09:30 Percent Meal Consumed 100% 02/05/25 18:00 Percent Meal Consumed 100% 02/05/25 15:17 Labs: RBC 3.39 X10^6/uL (4.5-5.9) L 02/07/25 04:04 Hgb 11.8 g/dL (13.5-17.5) L 02/07/25 04:04 Hct 33.5 % (41-53) L 02/07/25 04:04 Creatinine 0.76 mg/dL (0.66-1.25) 02/07/25 04:04 Lactate 1.0 mmol/L (0.7-2.1) 01/31/25 20:40 NT-Pro-B Natriuret Pep 9230 pg/mL (<125) H 02/02/25 07:40 Electronically Signed by: Korina Bee 02/07/25 11:04 Clinical Dietitian [address] [id number]
== END 2025-02-07 11:24 | disposition home health service (06) | DRG 291 ==
LOC: ED 23:57 → AC 02-01 00:01 → ICU 02-02 01:09
PROVIDERS: Family Medicine; Internal Medicine; Admitting Provider Internal Medicine; Emergency Provider Emergency Medicine; PCP Registered Nurse; Referring Provider Emergency Medicine; Visit Provider Internal Medicine
DX: I11.0 Hypertensive heart disease with heart failure (principal); I50.23 Acute on chronic systolic (congestive) heart failure; J96.01 Acute respiratory failure with hypoxia; J44.1 Chronic obstructive pulmonary disease with (acute) exacerbation; I47.10 Supraventricular tachycardia, unspecified; F17.210 Nicotine dependence, cigarettes, uncomplicated; I34.0 Nonrheumatic mitral (valve) insufficiency; N32.0 Bladder-neck obstruction; R91.8 Other nonspecific abnormal finding of lung field
CPT/HCPCS: 36415; 36600; 71045; 80048; 80053; 81001; 82805; 83605; 83735; 83880; 84484; 85025; 85610; 87797; 93005; 93306; 94640; 94660; 94667; 94762; 96365; 96375; 97116; 97163; 97166; 97530; 97535; 99285; 99291; J0696; J1650; J1938; J2270; J2919; J3475; J7613

== ENCOUNTER → 2025-06-19 09:01 | Outpatient (CLI) | payer OTHER, SELFPAY ==
[2025-02-01 00:57] VITALS: BMI 17.8
[2025-02-05 06:04] VITALS: PULSE 68; RESP 16; O2SAT 96
--- NOTE | 2025-06-19 09:03 | DI.CT.S_ITS ---
PROCEDURE: CT ABDOMEN PELVIS W CON INDICATIONS: early satiety, weight loss TECHNIQUE: After the administration of intravenous contrast, axial sections acquired from the lung bases to the pubic symphysis. Coronal and sagittal reformats were performed. For radiation dose reduction, the following was used: automated exposure control, adjustment of mA and/or kV according to patient size. COMPARISON: [facility], CT, CT CHEST WO [facility], 06/29/2024, 14:32. FINDINGS: Image quality: Diagnostic Lower chest: Small nodules are present, for example right middle lobe measuring 7 mm. Focal atelectasis also seen in medial portion of the left lower lobe. Possible dilation in the partially seen left ventricle. Liver: Subcentimeter lesions are present throughout the liver, too small to characterize Slightly irregular liver contour. Gallbladder and biliary system: Unremarkable, nondilated Pancreas: No ductal dilation. Mild diffuse parenchymal atrophy. Spleen: Unremarkable Adrenals: No discrete nodules Kidneys: [id number] renal atrophy. Nonobstructing stones versus distal calculi seen bilaterally. No solid renal mass. Vessels and lymph nodes: [id number] aortoiliac atherosclerotic calcifications with areas of noncalcified plaque in the distal abdominal aorta. No lymphadenopathy by size criteria. Bowel and peritoneum: Small amount of contrast in the distal esophagus likely from reflux or dysmotility. No bowel obstruction. Large diffuse colonic fecal loading Relatively under distended distal colon. No drainable abscess or ascites. Body wall: Unremarkable Pelvis: Unremarkable urinary bladder. Heterogeneous prostate with calcifications and a not well assessed on this study. Pelvic phleboliths are present. Bones: There are degenerative osseous changes. No aggressive appearing osseous abnormality. Leftward spinal curvature. IMPRESSION: No definite findings of disseminated metastatic disease. Large colonic fecal loading with relative under distention of the distal colon without discrete mass lesion by CT. Consider colonoscopy correlation. Irregular liver contour. This could represent early cirrhosis. Subcentimeter lesions are seen, too small to characterize, typically cysts or hemangiomas. Consider liver MRI to further evaluate given provided history. Small pulmonary nodules measuring up to 7 mm, chest CT suggested given previous chest findings. Other findings above. Dictated by: Henrique Goddard M.D. on 06/19/2025 at 11:33 Approved by: Henrique Goddard M.D. on 06/19/2025 at 11:43
[2025-06-19 10:01] LABS: Estimated Glomerular Filt Rate > 60 mL/min (>60)
== END ==
LOC: CT 09:02
PROVIDERS: PCP Registered Nurse; Referring Provider Registered Nurse; Visit Provider Registered Nurse
DX: R68.81 Early satiety (principal); R91.8 Other nonspecific abnormal finding of lung field; K76.9 Liver disease, unspecified; I70.0 Atherosclerosis of aorta
CPT/HCPCS: 36415; 74177; 82565; Q9967